=== PATIENT | male | born 1970 | race Caucasian/White ===

== ENCOUNTER 2021-03-12 20:00 | Outpatient (CLI) | payer OTHER, SELFPAY | END 2021-03-12 20:01 | disposition home or self-care (01) | LOC: SLEEP 03-13 08:45 | PROVIDERS: PCP Family Medicine; Visit Provider Psychiatry & Neurology Psychiatry | DX: G47.33 Obstructive sleep apnea (adult) (pediatric) (principal) | CPT/HCPCS: 95811 ==

== ENCOUNTER → 2021-06-26 07:46 | Outpatient (BNVA) | payer OTHER, SELFPAY | PROVIDERS: PCP Family Medicine; Visit Provider Urology | DX: N50.89 Other specified disorders of the male genital organs (principal); N49.2 Inflammatory disorders of scrotum; I86.1 Scrotal varices | CPT/HCPCS: 81003 ==

== ENCOUNTER → 2021-12-14 10:45 | Outpatient (BNVA) | payer OTHER, SELFPAY | PROVIDERS: PCP Family Medicine; Visit Provider Specialist | DX: R25.1 Tremor, unspecified (principal); G31.84 Mild cognitive impairment of uncertain or unknown etiology; N28.89 Other specified disorders of kidney and ureter; I25.118 Atherosclerotic heart disease of native coronary artery with other forms of angina pectoris | CPT/HCPCS: 96116; 99204; 99205 ==

== ENCOUNTER 2022-01-29 07:54 | Outpatient (CLI) | payer OTHER, SELFPAY ==
--- NOTE | 2022-01-29 11:24 | MR_ITS ---
WS: [id number] MRI HEAD WITHOUT CONTRAST TECHNIQUE: Sagittal T1, T2 axial, T2 axial FLAIR, axial and coronal T1 images, axial susceptibility w eighted imaging, axial diffusion weighted images, and coronal T2 images were obtained. CLINICAL INFORMATION: R25.1 - Tremor, unspecified COMPARISON: None. FINDINGS: No evidence of restricted diffusion to suggest acute ischemia. Ventricular system and basal cisterns are patent. Normal sorinao-white differentiation. 2 or 3 tiny punctate foci of T2 hyperintensity in the subcortical and deep white matter nonspecific in a patient this age but can be seen with hypertension , diabetes, small vessel disease. Normal posterior fossa. Normal vascular flow voids at the skull bas e. No extra-axial fluid collections. No evidence of mass or mass effect. Mastoid air cells are well aerated. Retention cyst RIGHT maxillar y sinus. Mild mucosal thickening in the ethmoid air cells. No hemosiderin on the susceptibility weigh frida images. Normal optic chiasm and pituitary infundibulum. Normal cavernous sinuses and Meckel's cave. MR/MR head wo con* [id number] IMPRESSION: 1. No evidence of restricted diffusion to suggest acute ischemia. 2. 2 or 3 tiny foci of T2 hyperintensity in the subcortical and deep white mat ter nonspecific in a patient this age but can be seen with hypertension, diabet es, small vessel disease. No significant parenchymal volume loss. 3. Retention cyst RIGHT maxillary sinus. Mild inflammatory changes in the para nasal sinuses. 4. Mastoid air cells are well aerated. 5. Normal optic chiasm and pituitary infundibulum. 6. Temporal lobes and hippocampal formations are normal in appearance. No sign al abnormalities in the temporal lobes. 7. No hemosiderin on susceptibly weighted images.
== END 2022-01-29 07:55 | disposition home or self-care (01) ==
LOC: RAD 07:55
PROVIDERS: PCP Family Medicine; Visit Provider Specialist
DX: R25.1 Tremor, unspecified (principal); M27.40 Unspecified cyst of jaw
CPT/HCPCS: 70551

== ENCOUNTER 2022-03-22 08:43 | Emergency (ER) | payer OTHER, SELFPAY ==
[2022-03-22] VITALS (11 sets, daily range): BP systolic 116–143; BP diastolic 57–94; PULSE 81–114; RESP 15–19; TEMP 36.6; O2SAT 91–99; BMI 35.6
--- NOTE | 2022-03-22 08:53 | XRR_ITS ---
PROCEDURE INFORMATION: Exam: XR Chest Exam date and time: 03/22/2022 9:22 AM Age: 51 years old Clinical indication: Pain; Angina pectoris; Additional info: Chest pain TECHNIQUE: Imaging protocol: XR of the chest. Views: 1 view. COMPARISON: CT abdomen pelvis w con* [id number] 11/06/2021 10:36 AM FINDINGS: Lungs: No pneumonia or pulmonary edema. Pleural spaces: No pleural effusion or pneumothorax. Heart/Mediastinum: The cardiac silhouette is not enlarged. The mediastinal contours are normal. Bones/joints: No acute osseous abnormality. XR/XR chest 1V portable [id number] IMPRESSION: No acute finding.
[2022-03-22 09:19] LABS: Basophils # 0.1 10^3/uL (0.0-0.1); Basophils % 0.5 %; Eosinophils # 0.1 10^3/uL (0.0-0.8); Eosinophils % 0.4 %; Hematocrit 54.1 % (42.0-52.0); Hemoglobin 18.2 g/dL (11.7-16.6); Lymphocytes # 0.9 10^3/uL (0.8-4.8); Lymphocytes % 5.9 %; Mean Corpuscular HGB Conc 33.6 g/dL (30.0-36.0); Mean Corpuscular Hemoglobin 27.8 pg (28.0-34.0); Mean Corpuscular Volume 82.7 fl (80-94); Mean Platelet Volume 9.8 fL (7.4-10.4); Monocytes # 0.8 10^3/uL (0.2-0.9); Neutrophils # 13.56 10^3/uL (1.8-7.7); Neutrophils % 87.5 %; Nucleated Red Blood Cells % 0 %; Platelet Count 264 10^3/cmm (130-400); Red Blood Count 6.54 10^6/uL (4.1-5.3); Red Cell Distribution Width 13.1 % (12.1-15.1); White Blood Count 15.5 10^3/uL (4.0-10.0)
--- NOTE | 2022-03-22 09:21 | CT_ITS ---
WS: [id number] CT ABDOMEN PELVIS TECHNIQUE: Contrast-enhanced CT of the abdomen and pelvis with coronal and sagittal reformatted image s. CLINICAL INFORMATION: abd pain COMPARISON: Outside CT November 06, 2021 and PET/CT December 12, 2021 DLP: 2176.[address] scans at [facility] [place] use at least one of these dose optimization techniques: automated e xposure control; mA and/or kV adjustment per patient size (includes targeted exams where dose is matc hed to clinical indication); or iterative reconstruction. FINDINGS: Hepatomegaly diffuse fatty infiltration liver. Normal portal vein and splenic vein. Normal GE junctio n. Normal spleen. Adrenal glands are normal. No hydronephrosis in either kidney. Normal renal parench ymal enhancement. RIGHT renal cysts. Several noncalcified nodules in the lower lobes partially visualized. The largest measuring 7 mm in t he lingula and 6 mm RIGHT middle lobe. LEFT lower lobe nodule measuring 7.6 mm. These are similar in appearance to November 06, 2021. Recommend follow-up chest CT for further evaluation. Normal GE junction. Fluid distended stomach. Fatty atrophy of the pancreas. Adrenal glands are normal . Normal spleen. Celiac and SMA are patent. No upper abdominal lymphadenopathy. Portal vein and splen ic vein are patent. Sigmoid diverticulosis. No evidence of acute diverticulitis CT/CT abdomen pelvis w con* [id number] IMPRESSION: 1. Numerous subcentimeter noncalcified pulmonary nodules lung bases similar t o November 06, 2021. This can be followed up with chest CT. 2. Hepatomegaly diffuse fatty infiltration of the liver. 3. No hydronephrosis in either kidney. RIGHT renal cysts. 4. No abdominal or pelvic lymphadenopathy. 5. Sigmoid diverticulosis. No evidence of acute diverticulitis. 6. Tiny fat-containing umbilical hernia. 7. No evidence of small or large bowel obstruction. 8. No other significant findings.
[2022-03-22 09:46] LABS: Alanine Aminotransferase 33 U/L (0-41); Albumin Level 4.8 g/dL (3.5-5.2); Alkaline Phosphatase 78 IU/L (40-130); Blood Urea Nitrogen 13 mg/dL (6-20); Calcium 8.8 mg/dL (8.5-10.5); Carbon Dioxide 22 mmol/L (22-29); Chloride 96 mmol/L (98-107); Glomerular Filtration Rate 89.3 mL/min (90-130); Glucose 352 mg/dL (65-115); Osmolality Calculated 294 mOsm/kg (285-295); Sodium 135 mmol/L (136-145); Total Bilirubin 0.7 mg/dL (0.15-1.2); Total Protein 6.8 g/dL (6.6-8.7)
[2022-03-22 09:49] LABS: Troponin(5th) Baseline 6 ng/L (0-15)
[2022-03-22 09:56] LABS: Anion Gap 22.5 (5-19); Aspartate Amino Transferase 22 U/L (0-40); Potassium 5.5 mmol/L (3.5-5.1)
--- NOTE | 2022-03-22 10:06 | W.ED.CHESTPA ---
HPI - Chest Pain General: Chief Complaint: Chest Pain Stated Complaint: CHEST PAIN Time Seen by Provider: 03/22/22 08:52 Source: patient Mode of arrival: ambulatory Limitations: no limitations History of Present Illness: 51-year-old male presents emergency room with complaint of episode of chest pain that lasted 30 to 60 seconds and resolved spontaneously. It began this morning while he was at rest he did take some nitro. Pain is gone and has not recurred since. He has a known history of coronary artery disease in 2017 had stents placed. He is also diabetic. He is currently taking Plavix as well as isosorbide mononitrate. He denies any recent medication changes. He not had other episodes of chest discomfort prior to today. MD complaint: chest pain Pertinent past history: coronary artery disease Onset (ago): minute(s) Timing of current episode: episodic Prior episodes: No Pain location: substernal Severity: mild Quality: sharp Relieving factors: nitroglycerin Exacerbating factors: nothing Associated symptoms: Reports diaphoresis and dyspnea; Deny abdominal pain, fever(s), leg edema, nausea, palpitations, sense of impending doom, syncope or vomiting Risk Factors: Coronary artery disease risk factors: diabetes, smoking history and hypertension Review of Systems Const: Reports: diaphoresis; Denies: fever(s), chills or body aches ENMT: Denies: throat pain, ear or mastoid pain, nasal discharge or nasal congestion Card: Reports: chest pain; Denies: palpitations, irregular heart rhythm or syncope Resp: Reports: dyspnea GI: Denies: abdominal pain, nausea or vomiting : Denies: flank pain, difficulty urinating, dysuria, urinary frequency or urinary urgency Skin/Breast: Denies: rash or pruritus PFSH ED PFSH: Medical History ASHD (arteriosclerotic heart disease) Atypical chest pain Fatigue Gastritis GERD (gastroesophageal reflux disease) Hyperlipidemia Hypertension Ischemic cardiomyopathy Obesity Obstructive sleep apnea Surgical History H/O heart artery stent History of arthroscopic surgery of shoulder Family History Father , AT 53 Heart attack Other Adopted CAD (coronary artery disease) Glaucoma Social History Smoking and tobacco status: never smoked Alcohol intake: never Marital status: Current occupational status: employed History of recent travel: No Physical Exam Const: COMMON NORMALS: no acute distress GENERAL APPEARANCE: cooperative and comfortable ORIENTATION/CONSCIOUSNESS: Yes awake, Yes oriented to person, Yes oriented to place and Yes oriented to time HENMT: COMMON NORMALS: normocephalic, atraumatic and hearing grossly normal bilaterally HEAD & SCALP: normocephalic and atraumatic Neck/C-Spine: COMMON NORMALS: no JVD Resp: COMMON NORMALS: normal respiratory effort, No retractions, No use of accessory muscles and clear to auscultation bilaterally AUSCULTATION: clear to auscultation bilaterally Cardio: COMMON NORMALS: no JVD, regular rate, regular rhythm and No murmurs present (Cardio) RATE: regular rate RHYTHM: regular rhythm GI: COMMON NORMALS: Soft to palpation and No hepatosplenomegaly present AUSCULTATION: Yes normoactive bowel sounds PALPATION: Yes Soft to palpation, No Tenderness to palpation present (GI), No Guarding due to palpation present (GI) and Yes No hepatosplenomegaly present Extremity: COMMON NORMALS: normal to inspection, capillary refill normal, no clubbing, cyanosis or edema, no calf tenderness and no pedal edema Neuro: SENSORIUM/ORIENTATION: Yes oriented to person, Yes oriented to place and Yes oriented to time Skin: COMMON NORMALS: no rashes or lesions noted GENERAL SKIN EXAM: no rashes or lesions noted Course Vital Signs: Vital signs: Vital Signs Temperature 98 F 03/22/22 16:03 Pulse Rate 96 03/22/22 16:03 Respiratory Rate 18 03/22/22 16:03 Blood Pressure 116/81 03/22/22 16:03 Pulse Oximetry 95 03/22/22 16:03 MDM - Chest Pain Medical Decision Making Patient's chest pain is fleeting in nature does not sound particularly cardiac. Its resolved at this point. He is not having any further symptoms. Weight went to discharge him initially and is found to be moderately tachycardic in the 120s and his sats were hovering in the low 90s. We pause discharge and did a CTA of the chest which was negative. He is now completely asymptomatic. Follow-up with cardiology clinic this week. Return if you have further problems. Medical Records I reviewed the patient's medical records. Lab Data I reviewed the patient's lab results. : 03/22/22 09:05 03/22/22 09:05 Radiology Impressions Chest X-Ray 03/22/22 08:53 IMPRESSION: No acute finding. Abdomen/Pelvis CT 03/22/22 09:21 IMPRESSION: 1. Numerous subcentimeter noncalcified pulmonary nodules lung bases similar to November 06, 2021. This can be followed up with chest CT. 2. Hepatomegaly diffuse fatty infiltration of the liver. 3. No hydronephrosis in either kidney. RIGHT renal cysts. 4. No abdominal or pelvic lymphadenopathy. 5. Sigmoid diverticulosis. No evidence of acute diverticulitis. 6. Tiny fat-containing umbilical hernia. 7. No evidence of small or large bowel obstruction. 8. No other significant findings. Chest CTA 03/22/22 13:05 IMPRESSION: 1. Proximal main pulmonary arteries are normal. Normal segmental and subsegmental pulmonary arteries. No evidence of pulmonary embolus. 2. No acute pulmonary infiltrates. 3. Numerous noncalcified scattered pulmonary nodules in both lungs similar in appearance to the prior PET CT December 12, 2021 largest measuring 9 mm. These are indeterminant and remain suspicious for metastatic disease. Recommend continued surveillance and short interval follow-up. Laboratory Results WBC 15.5 10^3/uL (4.0-10.0) H 03/22/22 09:05 RBC 6.54 10^6/uL (4.1-5.3) H 03/22/22 09:05 Hgb 18.2 g/dL (11.7-16.6) H 03/22/22 09:05 Hct 54.1 % (42.0-52.0) H 03/22/22 09:05 MCV 82.7 fl (80-94) 03/22/22 09:05 MCH 27.8 pg (28.0-34.0) L 03/22/22 09:05 MCHC 33.6 g/dL (30.0-36.0) 03/22/22 09:05 RDW 13.1 % (12.1-15.1) 03/22/22 09:05 Plt Count 264 10^3/cmm (130-400) 03/22/22 09:05 MPV 9.8 fL (7.4-10.4) 03/22/22 09:05 Neut % (Auto) 87.5 % 03/22/22 09:05 Lymph % (Auto) 5.9 % 03/22/22 09:05 Mercer % (Auto) 5.0 % 03/22/22 09:05 Eos % (Auto) 0.4 % 03/22/22 09:05 Baso % (Auto) 0.5 % 03/22/22 09:05 Neut # (Auto) 13.56 10^3/uL (1.8-7.7) H 03/22/22 09:05 Lymph # (Auto) 0.9 10^3/uL (0.8-4.8) 03/22/22 09:05 Mercer # (Auto) 0.8 10^3/uL (0.2-0.9) 03/22/22 09:05 Eos # (Auto) 0.1 10^3/uL (0.0-0.8) 03/22/22 09:05 Baso # (Auto) 0.1 10^3/uL (0.0-0.1) 03/22/22 09:05 Nucleated RBC % (auto) 0 % 03/22/22 09:05 Nucleated RBCs # 0.0 /100WBC 03/22/22 09:05 Sodium 135 mmol/L (136-145) L 03/22/22 09:05 Potassium 5.5 mmol/L (3.5-5.1) H 03/22/22 09:05 Chloride 96 mmol/L (98-107) L 03/22/22 09:05 Carbon Dioxide 22 mmol/L (22-29) 03/22/22 09:05 Anion Gap 22.5 (5-19) H 03/22/22 09:05 BUN 13 mg/dL (6-20) 03/22/22 09:05 Creatinine 0.9 mg/dL (0.7-1.2) 03/22/22 09:05 GFR Calculation 89.3 mL/min (90-130) L 03/22/22 09:05 Glucose 352 mg/dL (65-115) H 03/22/22 09:05 Calculated Osmolality 294 mOsm/kg (285-295) 03/22/22 09:05 Calcium 8.8 mg/dL (8.5-10.5) 03/22/22 09:05 Total Bilirubin 0.7 mg/dL (0.15-1.2) 03/22/22 09:05 AST 22 U/L (0-40) 03/22/22 09:05 ALT 33 U/L (0-41) 03/22/22 09:05 Alkaline Phosphatase 78 IU/L (40-130) 03/22/22 09:05 Troponin T Baseline 6 ng/L (0-15) 03/22/22 09:05 Troponin T 120 Minute 7.04 ng/L (0-15) 03/22/22 11:34 Delta Troponin T 1.04 ABS# (0-10) 03/22/22 11:34 Troponin T Hi Sens 6Hr 6.03 ng/L (0-15) 03/22/22 15:00 Troponin T Hi Sens 6Hr Delta 0.03 ng/L (0-12) 03/22/22 15:00 Total Protein 6.8 g/dL (6.6-8.7) 03/22/22 09:05 Albumin 4.8 g/dL (3.5-5.2) 03/22/22 09:05 Globulin 2.0 g/dL (1.3-4.6) 03/22/22 09:05 Urine Color Arlene (Yellow) 03/22/22 09:35 Urine Appearance Clear (CLEAR) 03/22/22 09:35 Urine pH 5 (5-7) 03/22/22 09:35 Ur Specific Lipscomb 1.030 (1.005-1.030) 03/22/22 09:35 Urine Protein 2+ (Negative) H 03/22/22 09:35 Urine Glucose (UA) 2+ (Normal) H 03/22/22 09:35 Urine Ketones Negative (Negative) 03/22/22 09:35 Urine Blood Neg (Negative) 03/22/22 09:35 Urine Nitrate Positive (Negative) H 03/22/22 09:35 Urine Bilirubin 1+ (Negative) H 03/22/22 09:35 Urine Urobilinogen 4 mg/dL (Negative) H 03/22/22 09:35 Ur Leukocyte Esterase Trace (Negative) H 03/22/22 09:35 Urine RBC None /hpf (0-2) 03/22/22 09:35 Urine WBC 5-10 /hpf (0-5) H 03/22/22 09:35 Ur Squamous Epith Cells None /hpf (0-5) 03/22/22 09:35 Amorphous Sediment Not Reportable 03/22/22 09:35 Urine Bacteria 1+ /hpf (NONE) H 03/22/22 09:35 Hyaline Casts 40-55 /lpf H 03/22/22 09:35 Urine Mucus 2+ /hpf 03/22/22 09:35 Discharge Plan Discharge Patient Disposition: Home Clinical Impression: Atypical chest pain Condition: Stable Prescriptions: No Action pantoprazole 40 mg tablet,delayed release (DR/EC) 40 mg PO DAILY 0RF isosorbide mononitrate 30 mg tablet extended release 24 hr 30 mg PO DAILY 0RF diphenhydramine HCl [Benadryl Allergy] 25 mg tablet 25 mg PO BEDTIME PRN (Reason: Allergy Symptoms) 0RF loratadine [Allergy Relief (loratadine)] 10 mg tablet 10 mg PO DAILY 0RF bupropion HCl 300 mg tablet extended release 24 hr 300 mg PO QAM 0RF niacin 500 mg capsule, extended release 500 mg PO DAILY 0RF pravastatin 40 mg tablet 40 mg PO DAILY 0RF coenzyme Q10 [Co Q-10] 100 mg capsule 100 mg PO DAILY 0RF metoprolol tartrate 25 mg tablet 25 mg PO BID 0RF aspirin [Adult Low Dose Aspirin] 81 mg tablet,delayed release (DR/EC) 81 mg PO DAILY 0RF fenofibrate nanocrystallized 145 mg tablet 145 mg PO DAILY 0RF clopidogrel 75 mg tablet 75 mg PO DAILY 0RF lisinopril 5 mg tablet 5 mg PO DAILY 0RF prazosin 1 mg capsule 5 mg PO BEDTIME 0RF omega-3 fatty acids [Fish Oil Concentrate] 1,000 mg capsule 2,000 mg PO BID 0RF cholecalciferol (vitamin D3) 25 mcg (1,000 unit) capsule 75 mcg PO DAILY 0RF primidone 50 mg tablet 50 mg PO BID Qty: 60 3RF ergocalciferol (vitamin D2) [Vitamin D2] 1,250 mcg (50,000 unit) capsule 1,250 mcg PO Q7D 0RF Rx Instructions: On Mondays Jardiance 25 mg tablet 25 mg PO DAILY 0RF alogliptin 25 mg tablet 25 mg PO DAILY 0RF glipizide 5 mg tablet 5 mg PO BID 0RF venlafaxine 75 mg tablet 75 mg PO DAILY 0RF metformin 500 mg tablet extended release 24hr 500 mg PO BID 0RF nitroglycerin [Nitrostat] 0.4 mg tablet, sublingual 0.4 mg SUBLINGUAL Q5M PRN (Reason: chest pain) Qty: 90 0RF Rx Instructions: do not exceed 3 doses per episode lamotrigine 200 mg Tablet 200 mg PO BEDTIME 0RF Discharge Orders: Discharge ED (Routine); Ordered 03/22/22 Ordered By: Mehdi Schofield Referrals: Lucia Hobbs MD [Primary Care Provider] - Discharge Diet: Usual diet Discharge Activity: Limit activity as instructed Patient Instructions: Opioid Safety Activity Restrictions/Additional Instructions: Avoid strenuous activity. Follow-up with your structural iron erector within the week. Return if you have further problems. Coding Level of Care Code ED Engineering Geologist for Tracy Fwd Exam Comprehensive
[2022-03-22] MEDS: lactated ringers 1,000 ML 999 ML IV (10:20)
[2022-03-22] MEDS: LORazepam 2 mg/mL INJ 1 mL IVP (10:30)
--- NOTE | 2022-03-22 10:53 | ECG_ITS ---
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 Measurements Intervals Lamar Rate: 109 P: 40 CT: 183 QRS: 71 QRSD: 96 T: 3 QT: 314 QTc: 423 Interpretive Statements SINUS TACHYCARDIA WITH OCCASIONAL VENTRICULAR PREMATURE COMPLEXES NONSPECIFIC ST & T-WAVE ABNORMALITY ABNORMAL RHYTHM ECG Compared to ECG 03/22/2022 08:56:48 Ventricular premature complex(es) now present Sinus rhythm no longer present T-wave abnormality still present Electronically Signed On 03-22-2022 16:36:22 CDT by Matt Brady M.D. [id number]
[2022-03-22 10:55] LABS: Protein Urine 2+ (Negative); Urine Appearance Clear (CLEAR); Urine Color Amber (Yellow); pH Urine 5 (5-7)
[2022-03-22 10:56] LABS: Add Urine Microscopic? YES; Bilirubin Urine 1+ (Negative); Blood Urine Neg (Negative); Glucose Urine UA 2+ (Normal); Ketones Urine Negative (Negative); Leukocyte Esterase Urine Trace (Negative); Nitrate Urine Positive (Negative); Urobilinogen Urine 4 mg/dL (Negative)
[2022-03-22 10:57] LABS: Add Urine Culture? No; Bacteria Urine 1+ /hpf; Hyaline Casts Urine 40-55 /lpf; Mucus Urine 2+ /hpf
[2022-03-22] MEDS: iohexol 350 mg/mL 100 mL Btl IV ×2 (10:59→14:00)
[2022-03-22 12:11] LABS: Troponin 5 2HR 7.04 ng/L (0-15)
[2022-03-22 12:28] LABS: Troponin 5 2HR Delta 1.04 ABS# (0-10)
--- NOTE | 2022-03-22 13:05 | CT_ITS ---
WS: [id number] CTA OF THE CHEST WITH PULMONARY EMBOLISM PROTOCOL TECHNIQUE: High-resolution contrast enhanced CTA of the chest with coronal and sagittal reformatted i radhas with pulmonary embolism protocol. MIP images are also reviewed. CLINICAL INFORMATION: tachycardia/hypoxia COMPARISON: PET CT December 12, [address] scans at [facility] use at least one of these dose optimization techniques: automated e xposure control; mA and/or kV adjustment per patient size (includes targeted exams where dose is matc hed to clinical indication); or iterative reconstruction. FINDINGS: Proximal main pulmonary arteries are normal. Normal segmental and subsegmental pulmonary arteries. No evidence of pulmonary embolus. Normal caliber thoracic aorta. No mediastinal or hilar lymphadenopath y. No axillary lymphadenopathy. Hepatomegaly. Normal GE junction. Fluid distended stomach. Adrenal glands are normal. Partially visua lized RIGHT renal cyst. Mild hypertrophic changes thoracic spine. Numerous bilateral noncalcified pulmonary nodules the largest measuring 8 to 9 mm. These are similar in appearance to the prior PET/CT and remain indeterminate. Metastatic disease not excluded. Recommen d continued surveillance. DLP: 595.[address]/CT angio chest PE protcl [id number] IMPRESSION: 1. Proximal main pulmonary arteries are normal. Normal segmental and subsegmen libby pulmonary arteries. No evidence of pulmonary embolus. 2. No acute pulmonary infiltrates. 3. Numerous noncalcified scattered pulmonary nodules in both lungs similar in appearance to the prior PET CT December 12, 2021 largest measuring 9 mm. These a re indeterminant and remain suspicious for metastatic disease. Recommend contin ued surveillance and short interval follow-up.
--- NOTE | 2022-03-22 14:53 | ECG_ITS ---
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 Measurements Intervals Pinon Rate: 96 P: 39 MD: 175 QRS: 69 QRSD: 100 T: 25 QT: 351 QTc: 444 Interpretive Statements SINUS RHYTHM POSSIBLE LEFT ATRIAL ENLARGEMENT [-0.1mV P-WAVE IN V1/V2] NONSPECIFIC T-WAVE ABNORMALITY Compared to ECG 03/01/2017 05:59:45 T-wave abnormality now present Myocardial infarct finding no longer present Electronically Signed On 03-22-2022 16:36:03 CDT by Matt Brady M.D. [id number]
[2022-03-22 15:39] LABS: Troponin 5 6HR 6.03 ng/L (0-15)
[2022-03-22 16:12] LABS: Troponin 5 6HR Delta 0.03 ng/L (0-12)
--- NOTE | 2022-03-23 09:40 | DCPLANNER ---
Addendum entered by Neva Clinton 04/16/22 18:52: This appointment was rescheduled. Addendum entered by Neva Clinton 03/25/22 14:26: Patient has a follow up appointment scheduled for Tuesday, March 29, 2022 at 9:30 with Zeenat Davidson at [facility]. Clinic will call patient with appointment information. Addendum entered by Neva Clinton 03/23/22 10:14: Patient has [facility] insurance, disease case manager rn sent patients information to Brie with [facility] for that authorization process to be started. Original Note: manager financial services had message to schedule a follow up appointment for patient with heart care. manager financial services sent patients information to the front office staff at [facility]. Patients information will be printed and reviewed. Clinic will call patient with appointment information.
== END 2022-03-22 16:04 | disposition home or self-care (01) ==
PROVIDERS: Emergency Provider Family Medicine; PCP Family Medicine
DX: R07.89 Other chest pain (principal); I25.10 Atherosclerotic heart disease of native coronary artery without angina pectoris; I10 Essential (primary) hypertension; E78.5 Hyperlipidemia, unspecified; G47.33 Obstructive sleep apnea (adult) (pediatric); Z95.5 Presence of coronary angioplasty implant and graft; Z79.82 Long term (current) use of aspirin; Z79.02 Long term (current) use of antithrombotics/antiplatelets; Z79.84 Long term (current) use of oral hypoglycemic drugs
CPT/HCPCS: 71045; 71275; 74177; 80053; 81001; 84484; 85025; 93005; 96361; 96374; 99285; J2060; Q9967

== ENCOUNTER → 2022-06-14 09:50 | Outpatient (BNVA) | payer OTHER, SELFPAY | PROVIDERS: PCP Family Medicine; Visit Provider Internal Medicine Cardiovascular Disease | DX: I25.118 Atherosclerotic heart disease of native coronary artery with other forms of angina pectoris (principal); G47.33 Obstructive sleep apnea (adult) (pediatric); I10 Essential (primary) hypertension; E78.2 Mixed hyperlipidemia | CPT/HCPCS: 99214 ==

== ENCOUNTER 2022-08-22 23:13 | Inpatient (IN) | payer OTHER, SELFPAY ==
[2022-08-22 23:30] VITALS: BMI 35.6
[2022-08-23] VITALS (30 sets, daily range): BP systolic 91–150; BP diastolic 43–103; PULSE 69–97; RESP 3–21; TEMP 36.8–37; O2SAT 91–98
--- NOTE | 2022-08-23 00:09 | USCV_ITS ---
Ralf Anne Age: 52 Gender: M : 1970 Exam Date: 08/23/2022 01:30 Ordering Phys: Gabriel Beavers MD Technologist: Mahogany Kruger Exam Location: [facility] [place] Indication: Chest painj DM Stent BP: 138 / 77 HR: 89 Rhythm: Sinus Technical Quality: Adequate MEASUREMENTS (Male / Female) Normal Values 2D ECHO LV Diastolic Diameter PLAX 4.4 cm 4.2 - 5.9 / 3.9 - 5.3 cm LV Systolic Diameter PLAX 3.0 cm LV Chamber Size 4.1 cm IVS Diastolic Thickness 1.3 cm 0.6 - 1.0 / 0.6 - 0.9 cm IVS Systolic Thickness 1.4 cm LVPW Diastolic Thickness 2.1 cm 0.6 - 1.0 / 0.6 - 0.9 cm LVPW Systolic Thickness 2.2 cm RV Chamber Size 3.1 cm LVOT Diameter 2.2 cm LV Ejection Fraction 2D Teich 60.4 % LV Ejection Fraction MOD 2C 55.2 % LV Ejection Fraction 2C AL 56.0 % LA Diameter 4.3 cm LA Width 2.8 cm LA Height 5.5 cm RA Width 3.3 cm RA Height 3.8 cm Aorta at Sinotubular Diameter 3.3 cm M-MODE Aortic Annulus Diameter 4.1 cm LA Ao Ratio MM 1.2 MV E Point Septal Separation 0.8 cm DOPPLER AV Peak Velocity 107.0 cm/s LVOT Peak Velocity 80.0 cm/s AV Area Cont Eq vti 2.8 cm squared AV Area Cont Eq pk 2.8 cm squared MV Area PHT 5.0 cm squared Mitral E to A Ratio 1.0 MV E' Velocity 34.5 cm/s Mitral E to MV E' Ratio 9.5 Mitral E to LV E' Lateral Ratio 13.4 Mitral E to LV E' Septal Ratio 7.3 TR Peak Velocity 148.5 cm/s TR Peak Gradient 8.8 mmHg TR Mean Velocity 113.3 cm/s TR Mean Gradient 5.5 mmHg TR Velocity Time Integral 34.5 cm TV Peak E Velocity 64.0 cm/s Right Atrial Pressure 8.0 mmHg Pulmonary Artery Systolic Pressu 16.8 mmHg RV Acceleration Time 0.1 s RV Ejection Time 0.2 s RV AcT/ET 0.5 FINDINGS Left Ventricle Left ventricle is normal in size. LV systolic function is normal with EF of 55 to 60%. No regional wall motion abnormalities are seen. Diastolic function is abnormal Right Ventricle Normal in size and function Right Atrium Normal in size Left Atrium Normal in size Mitral Valve Structurally normal mitral valve. Aortic Valve Grossly normal. No significant stenosis or regurgitation Tricuspid Valve Trace tricuspid regurgitation. Insufficient TR jet to calculate RVSP. Pulmonic Valve Not well-visualized Pericardium Normal Aorta Normal in size IVC CONCLUSIONS LV systolic function is normal with EF 55 to 60%. Diastolic function is abnormal Trace tricuspid regurgitation Compared to prior echocardiogram from 2017, no significant changes are seen James Corona MD (Electronically Signed) Final Date: 23 August 2022 17:53 S
--- NOTE | 2022-08-23 00:13 | P.HP_ITS ---
Providers/Chief Complaint Admitting Physician: Gabriel Beavers MD Primary Care Provider: Lucia Hobbs MD Chief Complaint: CP; diarrhea History of Present Illness Ralf Anne is a 52 year old male with past medical history of hypertension diabetes coronary artery disease status post stent, obstructive sleep apnea, Came in with chief complaint of ongoing chest tightness as well as jaw pain , accompanied with left arm radiation going on for the last 3 days, has remained the same without progressive worseing, rates jaw pain at around 4, he is also complaining of feeling excessively hot, denies any shortness of breath, palpitation, nausea vomiting. Patient is also complaining of non bloody watery diarrhea going on for the last 3 days, multiple episodes during the day, with abdominal cramps, denies any sick contacts, eating anything abnormal no similar prior complaint. He has been initially seen at [facility] ER and was accepted as direct admit. Pertinent labs: WBC: 10 H&H: 17/49 platelet: 283 serum sodium: 134 , potassium; 4.2 BUN: 14 and serum creatinine : 1.12, AST : 26 , ALT: 24 , ALP: 70 Recent reported C. difficile is negative Troponin trend: 105-102-128 EKG:NSR , nonspecific ST-T wave abnormality. Review of Systems General: Reports: 10 or more systems reviewed and unremarkable except in HPI and below Const: Denies: chills, body aches, change in appetite or diaphoresis Card: Denies: palpitations, edema, swelling of feet/ankles, dyspnea on exertion, orthopnea or leg pain with exertion Resp: Denies: dyspnea, productive cough, wheezing or pain on inspiration GI: Reports: diarrhea; Denies: abdominal pain, nausea, vomiting or constipation : Denies: flank pain or difficulty urinating Musc: Denies: back pain, extremity pain or extremity swelling Neuro: Denies: headache(s), difficulty walking or confusion Medications/Allergies Home Medications Medication Instructions Recorded Confirmed Last Taken Type aspirin 81 mg tablet,delayed 81 mg PO BEDTIME 04/07/20 08/23/22 03/21/22 History release (Adult Low Dose Aspirin) bupropion HCl 300 mg 24 hr tablet, 300 mg PO QAM 04/07/20 08/23/22 03/22/22 History extended release clopidogrel 75 mg tablet 75 mg PO DAILY 04/07/20 08/23/2222 History coenzyme Q10 100 mg capsule (Co 100 mg PO DAILY 04/07/20 08/23/22 03/22/22 History Q-10) diphenhydramine HCl 25 mg tablet 25 mg PO BEDTIME PRN Allergy 04/07/20 08/23/22 Unknown History (Benadryl Allergy) Symptoms fenofibrate nanocrystallized 145 145 mg PO DAILY 04/07/20 08/23/22 03/22/22 History mg tablet isosorbide mononitrate 30 mg 30 mg PO DAILY 04/07/20 08/23/22 03/22/22 History tablet,extended release 24 hr pantoprazole 40 mg tablet,delayed 40 mg PO DAILY 04/07/20 08/23/22 03/22/22 History release pravastatin 40 mg tablet 40 mg PO DAILY 04/07/20 08/23/22 03/22/22 History nitroglycerin 0.4 mg sublingual 0.4 mg sublingual Q5M PRN chest 04/15/20 08/23/22 Unknown Rx tablet (Nitrostat) pain #90 tabs alogliptin 25 mg tablet 25 mg PO DAILY 12/14/21 08/23/22 03/22/22 History cholecalciferol (vitamin D3) 25 75 mcg PO QAM 12/14/21 08/23/22 03/22/22 History mcg (1,000 unit) capsule empagliflozin 25 mg tablet 25 mg PO DAILY 12/14/21 08/23/22 03/22/22 History (Jardiance) primidone 50 mg tablet 50 mg PO BID #60 tabs 12/14/21 08/23/22 03/22/22 Rx metformin 500 mg tablet,extended 1,000 mg PO BID 02/19/22 08/23/22 03/22/22 History release 24hr lamotrigine 200 mg tablet 200 mg PO BEDTIME 03/22/22 08/23/22 03/21/22 History ascorbic acid (vitamin C) 500 mg 500 mg PO DAILY PRN unknown 08/23/22 08/23/22 Unknown History tablet (Vitamin C) ergocalciferol (vitamin D2) 1,250 50,000 unit PO Q7D 08/23/22 08/23/22 Unknown History mcg (50,000 unit) capsule (Vitamin D2) glipizide 10 mg tablet 10 - 20 mg PO BID 08/23/22 08/23/22 Unknown History lisinopril 10 mg tablet 10 mg PO QAM 08/23/22 08/23/22 Unknown History multivitamin 1 tab PO DAILY PRN unknown 08/23/22 08/23/22 Unknown History omega-3 fatty acids 1,000 mg 2,000 mg PO BID 08/23/22 08/23/22 Unknown History capsule prazosin 5 mg capsule 3 mg PO BEDTIME 08/23/22 08/23/22 Unknown History venlafaxine 75 mg capsule,extended 75 mg PO QAM 08/23/22 08/23/22 Unknown History release 24 hr (Effexor XR) metoprolol tartrate 50 mg tablet 50 mg PO BID #60 tabs 08/24/22 08/23/22 Unknown Rx niacin 500 mg tablet,extended 1,000 mg PO BEDTIME #30 tabs 08/24/22 08/23/22 Unknown Rx release (Slo-Niacin) Allergies Allergy/AdvReac Type Severity Reaction Status Date / Time No Known Allergies Allergy Verified 08/23/22 09:53 PFSH Acute PFSH: Medical History ASHD (arteriosclerotic heart disease) Atypical chest pain Fatigue Gastritis GERD (gastroesophageal reflux disease) Hyperlipidemia Hypertension Ischemic cardiomyopathy Obesity Obstructive sleep apnea Surgical History H/O heart artery stent History of arthroscopic surgery of shoulder Family History Father , AT 53 Heart attack Other Adopted CAD (coronary artery disease) Glaucoma Social History Smoking and tobacco status: never smoked Alcohol intake: never Marital status: Current occupational status: employed History of recent travel: No Vitals/I&O/Wt Last Vital Signs Temp 98.2 F 08/23/22 00:02 Pulse 97 08/23/22 00:02 Resp 17 08/23/22 00:02 BP 150/74 08/23/22 00:02 Pulse Ox 96 08/23/22 00:02 O2 Del Method 08/23/22 00:02 Weight last 48 hrs Weight 122.47 kg Physical Exam Const: COMMON NORMALS: patient oriented x3 HENMT: COMMON NORMALS: normocephalic and atraumatic HEAD & SCALP: normocephalic and atraumatic Resp: COMMON NORMALS: clear to auscultation bilaterally EFFORT & INSP ECTION: Yes symmetric chest movement AUSCULTATION: clear to auscultation bilaterally Cardio: COMMON NORMALS: regular rate, regular rhythm, S1 normal heart sound present, S2 normal heart sound present, No gallops present (Cardio), No murmurs present (Cardio), No rub (Cardio) and Peripheral pulses 2+ throughout RATE: regular rate RHYTHM: regular rhythm HEART SOUNDS: S1 normal heart sound present and S2 normal heart sound present PERIPHERAL PULSES: Peripheral pulses 2+ throughout GI: COMMON NORMALS: Normal to inspection, nondistended, normoactive bowel sounds present, Soft to palpation, non-tender, No hepatosplenomegaly present and no masses AUSCULTATION: Yes normoactive bowel sounds PALPATION: Yes Soft to palpation and Yes No hepatosplenomegaly present RECTAL EXAM: Yes deferred Extremity: COMMON NORMALS: no clubbing, cyanosis or edema and no pedal edema Neuro: COMMON NORMALS: patient oriented x3 Data : 08/24/22 03:13 08/24/22 03:13 A&P Assessment and plan (1) NSTEMI (non-ST elevated myocardial infarction): (2) Chest pain: (3) Hypertension: Qualifiers: Hypertension type: essential hypertension Qualified Code(s): I10 - Essential (primary) hypertension (4) ASHD (arteriosclerotic heart disease): (5) Hyperlipidemia: Qualifiers: Hyperlipidemia type: mixed hyperlipidemia Qualified Code(s): E78.2 - Mixed hyperlipidemia (6) Diabetes: (7) Obstructive sleep apnea: Plan 52 year old male with past medical history of hypertension diabetes coronary artery disease status post stent, obstructive sleep apnea, Came in with chief complaint of ongoing chest tightness as well as jaw pain , accompanied with left arm radiation going on for the last 3 days, has remained the same without progressive worseing, rates jaw pain at around 4, he is also complaining of feeling excessively hot, denies any shortness of breath, palpit ation, nausea vomiting. Patient is also complaining of non bloody watery diarrhea going on for the last 3 days, multiple episodes during the day, with abdominal cramps, denies any sick contacts, eating anything abnormal no similar prior complaint. Assessment: NSTEMI History of coronary artery disease s/p stent Hypertension Diabetes Diarrhea Obstructive sleep apnea Plan: Troponin trend: 105-102-128 EKG:NSR , nonspecific ST-T wave abnormality. Serial EKG monitoring Telemetry monitoring 2D echo Continue aspirin statin Plavix beta-shakila, Imdur, Nitropaste, sublingual nitro as needed. Received 1 dose of therapeutic Ac with lovenox Follow stool studies Stool Osmotic Gap IV hydration LDSSI, monitor fingerstick glucose Currently NPO Cardiology was consulted by ER physician of [facility]. Dr. Harding CODE STATUS: Full code DVT PPX : On Lovenox Attestations Medical Necessity Statement*: Patient is in hospital for management of NSTEMI. Anticipated length of stay greater than 2 midnights Time Spent in Patient Care: Greater than 35 minutes (>than 50% of time spent in counselling and/or direct pt care on unit) . Coding Level of Care Code Acute Shirt Marker for Chg Fwd Exam Detailed Diagnoses NSTEMI (non-ST elevated myocardial infarction) I21.4 Chest pain R07.9 Hypertension I10 Hypertension type: essential hypertension ASHD (arteriosclerotic heart disease) I25.10 Hyperlipidemia E78.2 Hyperlipidemia type: mixed hyperlipidemia Diabetes E11.9 Obstructive sleep apnea G47.33
[2022-08-23] MEDS: lactated ringers 1,000 ML 100 ML IV (00:43)
[2022-08-23] MEDS: enoxaparin 40 mg/0.4 mL Syringe SUBCUT (00:46)
[2022-08-23 00:47] LABS: Basophils % 0.4 %; Eosinophils # 0.2 10^3/uL (0.0-0.8); Eosinophils % 2.1 %; Hematocrit 50.3 % (42.0-52.0); Hemoglobin 16.6 g/dL (11.7-16.6); Lymphocytes # 2.6 10^3/uL (0.8-4.8); Lymphocytes % 27.7 %; Mean Corpuscular Hemoglobin 28.5 pg (28.0-34.0); Mean Corpuscular Volume 86.3 fl (80-94); Mean Platelet Volume 9.8 fL (7.4-10.4); Monocytes # 1.1 10^3/uL (0.2-0.9); Monocytes % 11.5 %; Neutrophils # 5.49 10^3/uL (1.8-7.7); Neutrophils % 57.9 %; Nucleated Red Blood Cells % 0 %; Platelet Count 257 10^3/cmm (130-400); Red Blood Count 5.83 10^6/uL (4.1-5.3); Red Cell Distribution Width 12.9 % (12.1-15.1); White Blood Count 9.5 10^3/uL (4.0-10.0)
[2022-08-23] MEDS: acetaminophen 325 mg Tablet 650 MG PO (00:51)
[2022-08-23 01:05] LABS: Alanine Aminotransferase 22 U/L (0-41); Albumin Level 4.1 g/dL (3.5-5.2); Alkaline Phosphatase 65 U/L (40-130); Anion Gap 15.6 (5-19); Aspartate Amino Transferase 22 U/L (0-40); Blood Urea Nitrogen 14 mg/dL (6-20); Calcium 9.1 mg/dL (8.5-10.5); Carbon Dioxide 24 mmol/L (22-29); Chloride 99 mmol/L (98-107); Globulin 2.7 g/dL (1.3-4.6); Glomerular Filtration Rate 78.8 mL/min (90-130); Glucose 172 mg/dL (65-115); Magnesium 1.6 mg/dL (1.7-2.3); Osmolality Calculated 285 mOsm/kg (285-295); Potassium 3.6 mmol/L (3.5-5.1); Sodium 135 mmol/L (136-145); Total Bilirubin 0.7 mg/dL (0.15-1.2); Total Protein 6.8 g/dL (6.6-8.7)
[2022-08-23 01:14] LABS: Troponin(5th) Baseline 128 ng/L (0-15)
[2022-08-23] MEDS: enoxaparin 80 mg/0.8 mL Syringe SUBCUT (02:07)
[2022-08-23 02:44] LABS: Troponin 5 2HR Delta -2.4 ABS# (0-10)
[2022-08-23 02:46] LABS: Troponin 5 2HR 125.6 ng/L (0-15)
--- NOTE | 2022-08-23 03:12 | ECG_ITS ---
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 Measurements Intervals [place] Rate: 84 P: 33 NM: 156 QRS: 25 QRSD: 98 T: 64 QT: 389 QTc: 461 Interpretive Statements SINUS RHYTHM POSSIBLE INFERIOR MYOCARDIAL INFARCTION , PROBABLY OLD [30 ms Q WAVE IN II/aVF] Compared to ECG 03/22/2022 11:28:17 Myocardial infarct finding now present Sinus tachycardia no longer present Ventricular premature complex(es) no longer present T-wave abnormality no longer present Electronically Signed On 08-23-2022 17:38:36 CDT by James Corona M.D. [id number]
--- NOTE | 2022-08-23 03:12 | ECG_ITS ---
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 Measurements Intervals [place] Rate: 84 P: 33 AK: 156 QRS: 25 QRSD: 98 T: 64 QT: 389 QTc: 461 Interpretive Statements SINUS RHYTHM POSSIBLE INFERIOR MYOCARDIAL INFARCTION , PROBABLY OLD [30 ms Q WAVE IN II/aVF] Compared to ECG 03/22/2022 11:28:17 Myocardial infarct finding now present Sinus tachycardia no longer present Ventricular premature complex(es) no longer present T-wave abnormality no longer present Electronically Signed On 08-23-2022 17:44:02 CDT by James Corona M.D. [id number]
--- NOTE | 2022-08-23 06:03 | ECG_ITS ---
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 Measurements Intervals [place] Rate: 80 P: 29 LA: 152 QRS: 25 QRSD: 101 T: 57 QT: 378 QTc: 437 Interpretive Statements SINUS RHYTHM Compared to ECG 08/23/2022 03:12:45 Myocardial infarct finding no longer present Electronically Signed On 08-23-2022 17:43:47 CDT by James Corona M.D. [id number]
[2022-08-23 06:25] LABS: Glucose Point of Care 235 mg/dL (70-110)
[2022-08-23] MEDS: nitroglycerin 1 gm/inch oint Pkt 1 INCH TOPICAL ×3 (06:39→18:08)
[2022-08-23 07:15] LABS: Troponin 5 6HR 135.8 ng/L (0-15); Troponin 5 6HR Delta 7.8 ng/L (0-12)
[2022-08-23] MEDS: insulin lispro 100 unit/1 mL SUBCUT ×4 (08:55→20:38)
[2022-08-23] MEDS: isosorbide mononitrate ER 30 mg Tablet PO (08:56)
[2022-08-23] MEDS: lisinopril 5 mg Tablet PO (08:56)
[2022-08-23] MEDS: aspirin 81 mg EC Tablet PO (08:56)
[2022-08-23] MEDS: venlafaxine 75 mg Tablet PO (08:57)
[2022-08-23] MEDS: pantoprazole DR 40 mg Tablet PO (08:57)
[2022-08-23] MEDS: clopidogrel 75 mg Tablet PO (08:57)
[2022-08-23] MEDS: primidone 50 mg Tablet PO ×2 (08:57→17:36)
[2022-08-23] MEDS: metoprolol tartrate 25 mg Tablet PO ×2 (08:57→17:36)
[2022-08-23] MEDS: fenofibrate 145 mg Tablet PO (08:57)
[2022-08-23] MEDS: atorvastatin 40 mg Tablet 20 MG PO (08:58)
[2022-08-23 09:08] LABS: Estmated Average Glucose 200; Hemoglobin A1C 8.6 % (4.0-6.0)
[2022-08-23 09:30] LABS: Folate Level 9.1 ng/mL (4.5-32.2)
[2022-08-23 09:40] LABS: Chol HDL Ratio 4.94 mg/dL (1.0-5.00); Cholesterol 153 mg/dL (0-200); HDL Cholesterol 31 mg/dL (60-100); Triglycerides 662 mg/dL (0-150); VLDL Cholestrol Calculation 132 mg/dL (0-30)
[2022-08-23 09:43] LABS: Vitamin B12 330 pg/mL (232-1245)
[2022-08-23 09:44] LABS: Thyroid Stimulating Hormone 1.42 uIU/mL (0.27-4.20)
--- NOTE | 2022-08-23 09:46 | XACV_ITS ---
Exam Room: [facility] Ht: 185 cm Wt: 122 kg BSA: 2.55 m2 Gender: Male : 1970 Any Known Allergies: Other Exam Priority: Routine Procedure(s): Procedure Description: Diagnostic procedure Procedure Description: PCI procedure Procedure Description: Left Heart Catheterization Procedure Description: Drug Eluting Coronary Stent Procedure Description: PTCA Procedure Description: Miscellaneous Procedure Description: ACT Procedure Description: Coronary Angiography Diagnostic Cath Status: Urgent Diagnostic Findings * Left Anterior Descending has mild luminal irregularities. * Distal Circumflex: totally occluded prior stent, ROME: 0 flow. LCx gives rise to a large sized OM branch that is patent. * INDICATION: 52 year old male with past medical history of hypertension, CAD with prior stent, diabetes, hyperlipidemia who presented to the [place] emergency room last week with chest pain symptoms. ACS was ruled out and he was discharged. He came back yesterday again with substernal chest discomfort radiating to the left arm and jaw. He says it has been staying quite persistently over the last few days. His troponin last week was normal and was over 100 this admission. EKG showed normal sinus rhythm with nonspecific ST-T wave changes. Q waves are seen in inferior leads. * Proximal Right Coronary Artery: chronic total occlusion, ROME: 0 flow. * 1st Diagonal: severe 70% stenosis, ROME: 3 flow. * Left Main has no disease. * Coronary angiography shows right dominance. PCI Status: Urgent PCI Indication: NSTE - ACS Interventional Findings * INTERVENTIONAL PRPCEDURE: We engaged left main artery with XB 3.5 guide catheter. IV heparin was administered to maintain ACT above 250 s. We used 0.014 run-through guidewire to cross diagonal artery stenosis. It was predilated with 2.5 x 12 mm semicompliant balloon. This was followed by placement of 2.5 x 18 mm resolute Moo drug-eluting stent. At this time final angiogram was performed that showed excellent stent expansion, no residual stenosis and ROME-3 flow. Guidewire and guide catheter were removed. Patient left the Blood Bank Calendar Control Clerk in a stable condition.. * 1st Diagonal: 70% stenosis treated with a AB TREK 2.50X12 RX BALLOON, and MDT R MOO 2.5X18 ROX. 0% residual stenosis, ROME: 3 flow. Conclusions 1. Severe diagonal artery stenosis s/p successful revascularization with ROX x1.. 2. Chronic total occlusion of distal left circumflex artery stent and proximal RCA. 3. 1st Diagonal was treated with a Balloon, and Drug Eluting Stent. Recommendations * Dual antiplatelet therapy with aspirin and Plavix for at least 1 year. * High intensity statin therapy. * Outpatient cardiology follow-up in 4 weeks. Interventional RX Recommendation: PCI w/o planned CABG Diagnostic RX Recommendation: PCI w/o planned CABG Anticoagulation: Heparin Pressures Phase:Rest AO : 105 / 83 ( 93 ) @ 11:31:00 AM 106 / 81 ( 93 ) @ 11:38:00 AM 104 / 79 ( 89 ) @ 11:43:00 AM 109 / 46 ( 73 ) @ 11:43:00 AM 91 / 67 ( 78 ) @ 11:58:00 AM LV : 116 / -3 / 15 @ 11:43:00 AM 115 / -3 / 15 @ 11:43:00 AM Valves Phase:DefaultPhase AV : 11.0 @ 11:11:37 AM AV Mean Gradient: 8.0 @ 11:11:37 AM Clinical Evaluation EBL: 5mL-10mL Procedural Details Procedure Consent Obtained. Admit Source: In Patient. Pre-Procedure Time Out. Identified patient by full name and date of as verbalized by the patient/guarantor. Does the consent match the physician's order: Yes. Accurate & Complete Informed Consent: Yes. Inpatient/Outpatient History & Physical on Chart: Yes. If H&P is completed, is and addenduem needed: N/A; If yes, is the addendum complete: N/A. Visualize and Verify Site with Patient/Guarantor: N/A. Relevant Radiology Images available: N/A. Pre-op teaching completed and patient verbalized understanding. The risks, benefits, and alternatives of sedation and/or procedure were discussed by physician. The patient agrees to continue. Procedure started. [facility] Clinical Fraility Score: 2: Well. Blood Bank Calendar Control Clerk Indications: Worsening Angina. Chest Pain Symptom Assessment: Typical Angina Symptoms. Correct patient, site and procedure confirmed by cath team. Current diagnosis: NSTEMI. PERRLA. Strong, equal hand office rn bilaterally. Lungs clear x 5 lobes. IV Site on Arrival: 20 gauge in the right anticubital. IV Fluids: Lactated Ringers at KVO. 850 mL infused prior to quality assurance qa lab technician. Pre Procedural Pulses: bilateral dorsalis pedis was 2+. Pre Procedural Pulses: bilateral radial was 3+. Oxygen started at 2liters/min via nasal canula. right groin was prepped with chloroprep then draped in the usual sterile fashion. right radial was prepped with chloroprep then draped in the usual sterile fashion. Physician notified. Baseline sample Acquired. HR: 80 BPM. Physician arrived. Physician scrubbed in. Immediate Pre-Procedure Time Out. Correct Patient: Yes; Correct Procedure: Yes; Correct Site: Yes; Correct Patient Position: Yes; Correct Supplies: Yes; Dried Flammable Prep: Yes; Blood Products Available: N/A;. Lidocaine 1% infiltrated to the right radial. Arterial access obtained. A 5 filipino TIG catheter in over wire. Catheter removed over the exchange wire. A 5 filipino Norberto catheter in over wire. Multiple views taken of left coronary artery. Catheter removed over the exchange wire. A 6 filipino JR4 catheter in over wire. Multiple views taken of right coronary artery. Catheter advanced across the valve. EDP Sample taken: LV 116/-4,15; HR: 73 BPM; SpO2: 96%. Pullback taken: LV 115/-4,15; AO 104/79(89); Mean: 8mmHg, Peak to Peak: 11mmHg, SEP: 19sec/min; HR: 75 BPM; SpO2: 96%. Catheter out. 6 filipino XB 3.5 guide catheter was inserted over the wire. Runthrough guidewire was advanced through the guide catheter to lesion in the diaganol. Balloon inserted to lesion in the diaganol. Inflation number : 1 A AB TREK 2.50X12 RX BALLOON was prepped and advanced across the 1st Diag , then inflated to 10 MI for 0:18 seconds. Inflation number: 2 The AB TREK 2.50X12 RX BALLOON was reinflated across the 1st Diag, to 10 MI for 0:15 seconds. Balloon out. Results checked. Stent inserted to lesion in the diaganol. Inflation Number : 3 A EVA R MOO 2.5X18 ROX -Lot Number# [id number] Exp 12/25/2024 was prepped and advanced across the 1st Diag. The stent was deployed at 0 MI for 0:20 seconds. Stent balloon out over wire. Results checked. ACT drawn. Results 297 seconds. Therapeutic limits - pre-heparin administration 90-150 seconds and monitoring heparin during a vascular procedure >250 seconds. Guide catheter and wire out. A TR Band was successful obtaining hemostatsis at the Right Radial artery insertion site. Post Procedure: Pulses reassessed and unchanged. PERRLA. Strong, equal hand office rn bilaterally. No VTE prophylaxis required. Medication's Wasted: Lidocaine 1% = 2 mL. Medication's Wasted: Nitro = 49.6 mg. Medication's Wasted: Other = Fentanyl 25 mcg. Total IV fluids: 71 mL. PCI Indication: NSTE. Post-op diagnosis: Obstructive CAD. Complications: none. Estimated blood loss: 5mL-10mL. Responsiveness - Normal response to verbal stimuli; alert and oriented, PERRLA. Airway - Unaffected, no intervention required; spontaneous ventilation. Circulation: W/N/L, pulses unchanged. Nausea/Vomiting: No. Procedure completed. Patient transferred by wheelchair to ICU. Vital chart was stopped. Access Site Site: Right Radial artery Sheath Size: 6 Fr Hemostasis Method: TR Band Hemostasis Success: Successful Procedure Medications Start: 10:23 AM Stop: 10:23 AM Medication: Versed Amount: 1 mg Route: I.V. Start: 10:23 AM Stop: 10:23 AM Medication: Fentanyl Amount: 50 mcg Route: I.V. Start: 10:24 AM Stop: 10:24 AM Medication: Versed Amount: 1 mg Route: I.V. Start: 10:28 AM Stop: 10:28 AM Medication: Heparin Amount: 5000 units Route: I.V. Start: 10:26 AM Stop: 10:26 AM Medication: Nitrogylcerin Amount: 200 mcg Route: I.A. Start: 10:49 AM Stop: 10:49 AM Medication: Versed Amount: 1 mg Route: I.V. Start: 10:49 AM Stop: 10:49 AM Medication: Fentanyl Amount: 25 mcg Route: I.V. Start: 10:50 AM Stop: 10:50 AM Medication: Heparin Amount: 6000 units Route: I.V. Start: 10:59 AM Stop: 10:59 AM Medication: Heparin Amount: 1000 units Route: I.V. Start: 11:01 AM Stop: 11:01 AM Medication: Nitrogylcerin Amount: 200 mcg Route: I.C. I, the attending physician, have reviewed and verified all procedure medications. Yes, all medications given per verbal order History/Risk Factors Hypertension: Yes Dyslipidemia: Yes Peripheral Arterial Disease (PAD): No Myocardial Infarction ([place]): Yes Obesity: Yes Renal Disease: No Tobacco Use: Never Prior Interventions PCI: Yes CABG: No Valve Surgery: No Date of PCI: 02/28/2017 Report Signatures Finalized by James Corona MD on 08/28/2022 08:53 PM
--- NOTE | 2022-08-23 09:47 | P.CONIM_ITS ---
Providers/Reason For Consult Consulting Physician/Specialty*: James Corona MD/ Cardiology Reason for Consult*: NSTEMI Requesting Physician: Dr Beavers Attending Physician: Diogo Murphy MD Primary Care Provider: Lucia Hobbs MD History of Present Illness History of Present Illness Ralf Anne is a 52 year old male with past medical history of hypertension, CAD with prior stent, diabetes, hyperlipidemia who presented to the [facility] emergency room last week with chest pain symptoms. ACS was ruled out and he was discharged. He came back yesterday again with substernal chest discomfort radiating to the left arm and jaw. He says it has been staying quite persistently over the last few days. His troponin was over 100. EKG showed normal sinus rhythm with nonspecific ST-T wave changes. Q waves are seen in inferior leads. Patient also had diarrhea for the last 3 days. Has improved now. Review of Systems General: Reports: 10 or more systems reviewed and unremarkable except in HPI and below Const: Denies: chills, body aches, change in appetite or diaphoresis Card: Reports: chest pain; Denies: palpitations, edema, swelling of feet/ankles, dyspnea on exertion, orthopnea or leg pain with exertion Resp: Denies: dyspnea, productive cough, wheezing or pain on inspiration GI: Reports: diarrhea; Denies: abdominal pain, nausea, vomiting or constipation : Denies: flank pain or difficulty urinating Musc: Denies: back pain, extremity pain or extremity swelling Neuro: Denies: headache(s), difficulty walking or confusion Medications/Allergies Home Medications Medication Instructions Recorded Confirmed Last Taken Type aspirin 81 mg tablet,delayed 81 mg PO DAILY 04/07/20 03/22/22 03/21/22 History release (Adult Low Dose Aspirin) bupropion HCl 300 mg 24 hr tablet, 300 mg PO QAM 04/07/20 03/22/22 03/22/22 History extended release clopidogrel 75 mg tablet 75 mg PO DAILY 04/07/20 03/22/22 03/22/22 History coenzyme Q10 100 mg capsule (Co 100 mg PO DAILY 04/07/20 03/22/22 03/22/22 History Q-10) diphenhydramine HCl 25 mg tablet 25 mg PO BEDTIME PRN Allergy 04/07/20 03/22/22 Unknown History (Benadryl Allergy) Symptoms fenofibrate nanocrystallized 145 145 mg PO DAILY 04/07/20 03/22/22 03/22/22 History mg tablet isosorbide mononitrate 30 mg 30 mg PO DAILY 04/07/20 03/22/22 03/22/22 History tablet,extended release 24 hr pantoprazole 40 mg tablet,delayed 40 mg PO DAILY 04/07/20 03/22/22 03/22/22 His tory release pravastatin 40 mg tablet 40 mg PO DAILY 04/07/20 03/22/22 03/22/22 History nitroglycerin 0.4 mg sublingual 0.4 mg sublingual Q5M PRN chest 04/15/20 03/22/22 Unknown Rx tablet (Nitrostat) pain #90 tabs alogliptin 25 mg tablet 25 mg PO DAILY 12/14/21 03/22/22 03/22/22 History cholecalciferol (vitamin D3) 25 75 mcg PO DAILY 12/14/21 03/22/22 03/22/22 History mcg (1,000 unit) capsule empagliflozin 25 mg tablet 25 mg PO DAILY 12/14/21 03/22/22 03/22/22 History (Jardiance) primidone 50 mg tablet 50 mg PO BID #60 tabs 12/14/21 03/22/22 03/22/22 Rx metformin 500 mg tablet,extended 500 mg PO BID 02/19/22 03/22/22 03/22/22 History release 24hr lamotrigine 200 mg tablet 200 mg PO BEDTIME 03/22/22 03/22/22 03/21/22 History ascorbic acid (vitamin C) 500 mg 500 mg PO DAILY PRN unknown 08/23/22 08/23/22 Unknown History tablet (Vitamin C) ergocalciferol (vitamin D2) 1,250 50,000 unit PO Q7D 08/23/22 08/23/22 Unknown History mcg (50,000 unit) capsule (Vitamin D2) glipizide 10 mg tablet 10 - 20 mg PO BID 08/23/22 08/23/22 Unknown History lisinopril 10 mg tablet 10 mg PO QAM 08/23/22 08/23/22 Unknown History metoprolol tartrate 50 mg tablet 50 mg PO DAILY 08/23/22 08/23/22 Unknown History multivitamin 1 tab PO DAILY PRN unknown 08/23/22 08/23/22 Unknown History niacin 500 mg tablet,extended 500 mg PO BEDTIME 08/23/22 08/23/22 Unknown History release (Slo-Niacin) omega-3 fatty acids 1,000 mg 2,000 mg PO BID 08/23/22 08/23/22 Unknown History capsule prazosin 5 mg capsule 5 mg PO BEDTIME 08/23/22 08/23/22 Unknown History venlafaxine 75 mg capsule,extended 75 mg PO QAM 08/23/22 08/23/22 Unknown History release 24 hr (Effexor XR) Allergies Allergy/AdvReac Type Severity Reaction Status Date / Time No Known Allergies Allergy Verified 08/23/22 09:53 Current Medications Generic Name Dose Route Start Last Admin Trade Name Freq PRN Reason Stop Dose Admin Acetaminophen 650 mg 08/23/22 00:04 08/23/22 00:51 Acetaminophen 325 Mg Tablet PO 650 mg Q6H PRN Administration Mild/Mod Pain Or Temp >/= 101 Aspirin 81 mg 08/23/22 09:00 08/23/22 08:56 Aspirin 81 Mg Ec Tablet PO 81 mg DAILY JOANA Administration Atorvastatin Calcium 20 mg 08/23/22 09:00 08/23/22 08:58 Atorvastatin 40 Mg Tablet PO 20 mg DAILY JOANA Administration Clopidogrel Bisulfate 75 mg 08/23/22 09:00 08/23/22 08:57 Clopidogrel 75 Mg Tablet PO 75 mg DAILY JOANA Administration Fenofibrate 145 mg 08/23/22 09:00 08/23/22 08:57 Fenofibrate 145 Mg Tablet PO 145 mg DAILY JOANA Administration Lactated Ringer's 1,000 mls @ 75 mls/hr 08/23/22 00:15 08/23/22 08:57 Lactated Ringers IV 75 mls/hr .[id number] JOANA Infusion Insulin Human Lispro 0 unit 08/23/22 08:00 08/23/22 08:55 Insulin Lispro 100 Unit/1 Ml SUBCUT 6 unit WM&BEDTIME JOANA Administration Protocol Isosorbide Mononitrate 30 mg 08/23/22 09:00 08/23/22 08:56 Isosorbide Mononitrate Er 30 Mg Tablet PO 30 mg DAILY JOANA Administration Lisinopril 5 mg 08/23/22 09:00 08/23/22 08:56 Lisinopril 5 Mg Tablet PO 5 mg DAILY JOANA Administration Metoprolol Tartrate 25 mg 08/23/22 09:00 08/23/22 08:57 Metoprolol Tartrate 25 Mg Tablet PO 25 mg BID JOANA Administration Nitroglycerin 1 inch 08/23/22 07:00 08/23/22 06:39 Nitroglycerin 1 Gm/Inch Oint Pkt TOPICAL 1 inch Q6H JOANA Administration Pantoprazole Sodium 40 mg 08/23/22 09:00 08/23/22 08:[address] 40 Mg Tablet PO 40 mg DAILY JOANA Administration Primidone 50 mg 08/23/22 09:00 08/23/22 08:57 Primidone 50 Mg Tablet PO 50 mg BID JOANA Administration Venlafaxine HCl 75 mg 08/23/22 09:00 08/23/22 08:57 Venlafaxine 75 Mg Tablet PO 75 mg DAILY JOANA Administration PFSH Acute 2 PFSH: Medical History ASHD (arteriosclerotic heart disease) Atypical chest pain Fatigue Gastritis GERD (gastroesophageal reflux disease) Hyperlipidemia Hypertension Ischemic cardiomyopathy Obesity Obstructive sleep apnea Surgical History H/O heart artery stent History of arthroscopic surgery of shoulder Family History Father , AT 53 Heart attack Other Adopted CAD (coronary artery disease) Glaucoma Social History Smoking and tobacco status: never smoked Alcohol intake: never Marital status: Current occupational status: employed History of recent travel: No Vitals/I&O/Wt Last Vital Signs Temp 98.6 F 08/23/22 08:00 Pulse 81 08/23/22 08:00 Resp 12 08/23/22 08:00 BP 145/88 08/23/22 08:00 Pulse Ox 96 08/23/22 08:00 O2 Del Method 08/23/22 08:00 08/22/22 08/23/22 08/23/22 22:59 06:59 14:59 Intake Total 823.333 / 823.333 Balance 823.333 / 823.333 Weight last 48 hrs Weight 270 lb Physical Exam Narrative: GENERAL: Patient is alert, awake and oriented x3. [] NECK: No jugular vein distension. [] HEENT: No cyanosis. No icterus. No pallor. [] HEART: Regular S1 and S2. No murmur, rub or gallop. [] LUNGS: Clear to auscultate bilaterally. [] ABDOMEN: Soft, nontender and nondistended. Positive bowel sounds. No guarding, rebound or tenderness. [] CENTRAL NERVOUS SYSTEM: Grossly nonfocal. [] EXTREMITIES: Lower extremities with 1+ edema bilaterally. Pulses palpable in the lower extremities, both dorsalis pedis and posterior tibial. [] Data : 08/23/22 00:36 08/23/22 00:36 A&P Assessment and plan (1) NSTEMI (non-ST elevated myocardial infarction): (2) Chest pain: (3) Diabetes: (4) Hypertension: Qualifiers: Hypertension type: essential hypertension Qualified Code(s): I10 - Essential (primary) hypertension (5) Hyperlipidemia: Qualifiers: Hyperlipidemia type: mixed hyperlipidemia Qualified Code(s): E78.2 - Mixed hyperlipidemia (6) Obstructive sleep apnea: Plan Patient has presented with a non-ST elevation [place]. Describes typical chest pain. Still having on and off chest pain. Continue aspirin and Plavix. Continue anticoagulation. Keep NPO. He will need coronary angiogram with possible percutaneous coronary intervention. Risks and benefits of the procedure have been discussed with the patient. He understands the risks and wants to proceed with the procedure. Order echocardiogram Thank you for involving us with care of this patient. We will continue to follow. Please call with questions. Consult Attestations Medical Necessity Statement: Care expected to cross 2 midnights. Coding Level of Care Code Acute Supervisor [employer] for [facility] Fwd Diagnoses NSTEMI (non-ST elevated myocardial infarction) I21.4 Chest pain R07.9 Diabetes E11.9 Hypertension I10 Hypertension type: essential hypertension Hyperlipidemia E78.2 Hyperlipidemia type: mixed hyperlipidemia Obstructive sleep apnea G47.33
[2022-08-23 09:56] LABS: LDL Cholesterol Direct 58 mg/dL (0-100)
--- NOTE | 2022-08-23 10:08 | PC.NURSE ---
PT TAKEN TO [employer]NET SALES ASSOCIATE AT APPROX. 1010
[2022-08-23 11:54] LABS: Glucose Point of Care 183 mg/dL (70-110)
[2022-08-23] MEDS: lactated ringers 1,000 ML 75 ML IV (11:57)
--- NOTE | 2022-08-23 15:25 | P.PN_ITS ---
Subjective Subjective: Admitted overnight. H&P and labs appreciated On examination early in the morning laying comfortably in bed with family at bedside. Patient continues to have minimal jaw pain even with Nitropaste. Denies any nausea, vomiting, dizziness. Patient was seen by cardiology underwent cardiac angiogram and PCI.(Complete report not available currently.) Vitals/I&O/Wt Last Vital Signs Temp 98.5 F 08/23/22 12:30 Pulse 81 08/23/22 14:30 Resp 13 08/23/22 14:30 BP 107/73 08/23/22 14:30 Pulse Ox 96 08/23/22 14:15 O2 Del Method 08/23/22 08:00 08/23/22 08/23/22 08/23/22 06:59 14:59 22:59 Intake Total 1240.000 / 1240.000 Balance 1240.000 / 1240.000 Weight last 48 hrs Weight 122.47 kg Physical Exam Const: COMMON NORMALS: patient oriented x3 HENMT: COMMON NORMALS: normocephalic and atraumatic HEAD & SCALP: normocephalic and atraumatic Resp: COMMON NORMALS: clear to auscultation bilaterally EFFORT & INSPECTION: Yes symmetric chest movement AUSCULTATION: clear to auscultation bilaterally Cardio: COMMON NORMALS: regular rate, regular rhythm, S1 normal heart sound present, S2 normal heart sound present, No gallops present (Cardio), No murmurs present (Cardio), No rub (Cardio) and Peripheral pulses 2+ throughout RATE: regular rate RHYTHM: regular rhythm HEART SOUNDS: S1 normal heart sound present and S2 normal heart sound present PERIPHERAL PULSES: Peripheral pulses 2+ throughout GI: COMMON NORMALS: Normal to inspection, nondistended, normoactive bowel sounds present, Soft to palpation, non-tender, No hepatosplenomegaly present and no masses AUSCULTATION: Yes normoactive bowel sounds PALPATION: Yes Soft to palpation and Yes No hepatosplenomegaly present RECTAL EXAM: Yes deferred Extremity: COMMON NORMALS: no clubbing, cyanosis or edema and no pedal edema Neuro: COMMON NORMALS: patient oriented x3 Data : 08/23/22 00:36 08/23/22 00:36 A&P Assessment and plan (1) NSTEMI (non-ST elevated myocardial infarction): Cardiology on board. Underwent cardiac angiogram and PCI. Continue with aspirin, Plavix, statin. Check echocardiogram, A1c, lipid panel. (2) Chest pain: (3) Hypertension: Goal blood pressure less than 140/90 mmHg. Continuing home medication including metoprolol, Imdur, lisinopril. Will uptitrate as per blood pressure goal. Qualifiers: Hypertension type: essential hypertension Qualified Code(s): I10 - Essential (primary) hypertension (4) ASHD (arteriosclerotic heart disease): (5) Hyperlipidemia: Qualifiers: Hyperlipidemia type: mixed hyperlipidemia Qualified Code(s): E78.2 - Mixed hyperlipidemia (6) Diabetes: (7) Obstructive sleep apnea: Plan Diarrhea: Cannot rule out infectious cause. Denies any melena or hematochezia. Will await stool studies before starting on loperamide. Restart other chronic medications. Analgesia: Tylenol as needed Glycemic control: Insulin sliding scale Nutrition: Cardiac carb consistent diet CODE STATUS: Full code PUD prophylaxis: Protonix DVT prophylaxis: Lovenox for DVT prophylaxis Discharge planning: Transfer to [facility] post PCI. This documentation was created by [employer] tactical deception plans officer software. Every effort was made to ensure accuracy of tactical deception plans officer. Any obvious errors or omissions should be clarified with the author of the document. Attestations Medical Necessity Statement*: Requires further hospitalization for management of non-ST elevation DC, diarrhea Time Spent in Patient Care: Greater than 35 minutes Coding Level of Care Code Acute Change Agent for g Fwd Diagnoses NSTEMI (non-ST elevated myocardial infarction) I21.4 Chest pain R07.9 Hypertension I10 Hypertension type: essential hypertension ASHD (arteriosclerotic heart disease) I25.10 Hyperlipidemia E78.2 Hyperlipidemia type: mixed hyperlipidemia Diabetes E11.9 Obstructive sleep apnea G47.33
[2022-08-23 17:46] LABS: Glucose Point of Care 187 mg/dL (70-110)
[2022-08-23 20:16] LABS: Glucose Point of Care 242 mg/dL (70-110)
[2022-08-23] MEDS: lamoTRIgine 100 mg Tablet 200 MG PO (20:30)
[2022-08-23] MEDS: prazosin 1 mg Capsule 3 MG PO (20:38)
[2022-08-23] MEDS: sodium chloride 0.9% 1,000 ML 100 ML IV (21:52)
--- NOTE | 2022-08-23 23:50 | PC.NURSE ---
patient states he takes 3mg prazosin at bedtime not 5 mg, edited order and updated home med list
[2022-08-24] VITALS (12 sets, daily range): BP systolic 90–135; BP diastolic 48–78; PULSE 72–79; RESP 0–18; TEMP 36.4–36.5; O2SAT 90–98
[2022-08-24] MEDS: nitroglycerin 1 gm/inch oint Pkt 1 INCH TOPICAL (00:26)
[2022-08-24 03:36] LABS: Add Urine Microscopic? NO; Charge for UA Resulting for Rev
[2022-08-24 03:48] LABS: Bilirubin Urine Negative (Negative); Blood Urine Negative (Negative); Glucose Urine UA 1+ (Normal); Ketones Urine Negative (Negative); Leukocyte Esterase Urine Negative (Negative); Nitrate Urine Negative; Protein Urine Negative (Negative); Specific Gravity, Urine >= 1.030 (1.005-1.030); Urine Appearance Clear (CLEAR); Urine Color Yellow (Yellow); Urobilinogen Urine 0.2 mg/dL (Negative); pH Urine 5.5 (5-7)
[2022-08-24 04:13] LABS: Basophils % 0.5 %; Eosinophils # 0.1 10^3/uL (0.0-0.8); Hematocrit 39.4 % (42.0-52.0); Hemoglobin 13.5 g/dL (11.7-16.6); Lymphocytes # 2.2 10^3/uL (0.8-4.8); Lymphocytes % 33.8 %; Mean Corpuscular HGB Conc 34.3 g/dL (30.0-36.0); Mean Corpuscular Hemoglobin 28.5 pg (28.0-34.0); Mean Corpuscular Volume 83.1 fl (80-94); Mean Platelet Volume 10.2 fL (7.4-10.4); Monocytes # 0.7 10^3/uL (0.2-0.9); Monocytes % 10.1 %; Neutrophils # 3.47 10^3/uL (1.8-7.7); Neutrophils % 53.1 %; Nucleated Red Blood Cells % 0 %; Platelet Count 214 10^3/cmm (130-400); Red Blood Count 4.74 10^6/uL (4.1-5.3); Red Cell Distribution Width 12.4 % (12.1-15.1); White Blood Count 6.5 10^3/uL (4.0-10.0)
[2022-08-24 04:45] LABS: Alanine Aminotransferase 18 U/L (0-41); Albumin Level 3.7 g/dL (3.5-5.2); Alkaline Phosphatase 52 U/L (40-130); Aspartate Amino Transferase 18 U/L (0-40); Blood Urea Nitrogen 10 mg/dL (6-20); Calcium 8.4 mg/dL (8.5-10.5); Carbon Dioxide 28 mmol/L (22-29); Chol HDL Ratio 4.96 mg/dL (1.0-5.00); Cholesterol 134 mg/dL (0-200); Globulin 1.8 g/dL (1.3-4.6); Glucose 193 mg/dL (65-115); HDL Cholesterol 27 mg/dL (60-100); Magnesium 1.6 mg/dL (1.7-2.3); Phosphorus 3.6 mg/dL (2.5-4.5); Total Bilirubin 0.5 mg/dL (0.15-1.2); Total Protein 5.5 g/dL (6.6-8.7); Triglycerides 586 mg/dL (0-150); VLDL Cholestrol Calculation 117 mg/dL (0-30)
[2022-08-24 04:53] LABS: Potassium 3.6 mmol/L (3.5-5.1)
[2022-08-24 05:45] LABS: Anion Gap 12.6 (5-19); LDL Cholesterol Direct 35 mg/dL (0-100)
[2022-08-24 05:49] LABS: Chloride 100 mmol/L (98-107); Osmolality Calculated 288 mOsm/kg (285-295); Sodium 137 mmol/L (136-145)
[2022-08-24] MEDS: buPROPion XL (24 HR) 300 mg Tablet PO (06:05)
[2022-08-24] MEDS: acetaminophen 325 mg Tablet 650 MG PO (06:11)
[2022-08-24 07:16] LABS: Glucose Point of Care 201 mg/dL (70-110)
[2022-08-24] MEDS: insulin lispro 100 unit/1 mL SUBCUT (08:44)
[2022-08-24] MEDS: sodium chloride 0.9% 1,000 ML 100 ML IV (08:45)
[2022-08-24] MEDS: aspirin 81 mg EC Tablet PO (08:45)
[2022-08-24] MEDS: fenofibrate 145 mg Tablet PO (08:46)
[2022-08-24] MEDS: isosorbide mononitrate ER 30 mg Tablet PO (08:46)
[2022-08-24] MEDS: lisinopril 5 mg Tablet PO (08:46)
[2022-08-24] MEDS: clopidogrel 75 mg Tablet PO (08:46)
[2022-08-24] MEDS: atorvastatin 40 mg Tablet 20 MG PO (08:46)
[2022-08-24] MEDS: metoprolol tartrate 25 mg Tablet PO (08:46)
[2022-08-24] MEDS: pantoprazole DR 40 mg Tablet PO (08:47)
[2022-08-24] MEDS: primidone 50 mg Tablet PO (08:47)
[2022-08-24] MEDS: venlafaxine 75 mg Tablet PO (08:48)
--- NOTE | 2022-08-24 08:52 | PM.PN ---
Subjective Subjective: Patient is doing well. no more complaints of chest pain. Had successful revascularization of diagonal artery with ROX x 1. Vitals/I&O/Wt Last Vital Signs Temp 97.6 F 08/24/22 04:00 Pulse 79 08/24/22 08:25 Resp 12 08/24/22 08:25 BP 135/68 08/24/22 08:25 Pulse Ox 90 08/24/22 08:25 O2 Del Method 08/24/22 08:25 08/23/22 08/24/22 08/24/22 22:59 06:59 14:59 Intake Total 722 / 2531.482 1748 / 2962.000 Balance 722 / 7832.176 2039 / 2962.000 Weight last 48 hrs Weight 281 lb 12.8 oz Weight 270 lb Physical Exam Narrative: GENERAL: Patient is alert, awake and oriented x3. [] NECK: No jugular vein distension. [] HEENT: No cyanosis. No icterus. No pallor. [] HEART: Regular S1 and S2. No murmur, rub or gallop. [] LUNGS: Clear to auscultate bilaterally. [] ABDOMEN: Soft, nontender and nondistended. Positive bowel sounds. No guarding, rebound or tenderness. [] CENTRAL NERVOUS SYSTEM: Grossly nonfocal. [] EXTREMITIES: Lower extremities with 1+ edema bilaterally. Pulses palpable in the lower extremities, both dorsalis pedis and posterior tibial. [] Data : 08/24/22 03:13 08/24/22 03:13 A&P Assessment and plan (1) NSTEMI (non-ST elevated myocardial infarction): (2) Chest pain: (3) Diabetes: (4) Hypertension: Qualifiers: Hypertension type: essential hypertension Qualified Code(s): I10 - Essential (primary) hypertension (5) Hyperlipidemia: Qualifiers: Hyperlipidemia type: mixed hyperlipidemia Qualified Code(s): E78.2 - Mixed hyperlipidemia (6) Obstructive sleep apnea: Plan Coronary angiogram demonstrated severe diagonal artery stenosis. He underwent successful revascularization with ROX x1. He had totally occluded stent in the distal left circumflex artery with collateral blood supply. Dual antiplatelet therapy with aspirin and Plavix. High intensity statin therapy. Aggressive risk factor control Echocardiogram shows preserved LV systolic function. Thank you for involving us with care of this patient. Patient is stable to be discharged from cardiology standpoint. Please call with questions. Attestations Medical Necessity Statement*: Care expected to cross 2 midnights. Coding Level of Care Code Acute Digital Director for Tracy [facility] Diagnoses NSTEMI (non-ST elevated myocardial infarction) I21.4 Chest pain R07.9 Diabetes E11.9 Hypertension I10 Hypertension type: essential hypertension Hyperlipidemia E78.2 Hyperlipidemia type: mixed hyperlipidemia Obstructive sleep apnea G47.33
--- NOTE | 2022-08-24 09:43 | P.DS_ITS ---
Discharge Providers Date of Admission: 08/22/22 23:13 Date of Discharge: August 24, 2022 Attending Provider at Admission: Gabriel Beavers MD Attending Provider at Discharge: Diogo Murphy MD Primary Care Provider: Lucia Hobbs MD Diagnoses at Discharge Discharge Diagnosis (1) NSTEMI (non-ST elevated myocardial infarction): Status: Acute (2) Chest pain: Status: Acute (3) Diabetes: Status: Acute (4) Hypertension: Status: Acute Qualifiers: Hypertension type: essential hypertension Qualified Code(s): I10 - Essential (primary) hypertension (5) Hyperlipidemia: Status: Acute Qualifiers: Hyperlipidemia type: mixed hyperlipidemia Qualified Code(s): E78.2 - Mixed hyperlipidemia (6) Obstructive sleep apnea: Status: Acute Reason for Visit Reason for Visit: CP; diarrhea Hospital Course Hospital Course Ralf Anne is a 52 year old male with past medical history of hypertension, CAD with prior stent, diabetes, hyperlipidemia who presented to the [place] emergency room last week with chest pain symptoms.? ACS was ruled out and he was discharged.? He came back yesterday again with substernal chest discomfort radiating to the left arm and jaw.? He says it has been staying quite persistently over the last few days.? His troponin was over 100.? EKG showed normal sinus rhythm with nonspecific ST-T wave changes.? Q waves are seen in inferior leads.? Patient also had diarrhea for the last 3 days. Patient to the hospital further evaluation and management. Cardiology was consulted and he underwent cardiac angiogram on 08/23. He underwent PCI.(Full Cardiac Barrel Filler Head report is not available to me right now). Postprocedure patient did not have any further episodes of angina or diarrhea. He was found to have uncontrolled diabetes with A1c of 8.6 along with triglyceridemia. Patient is already on 3 antidiabetic medications along with 2 medications for triglyceridemia. He was counseled detail regarding lifestyle modification along with stricter blood sugar control at home. He was advised to be started on insulin for both blood sugar controls and tighter triglyceride control. Patient verbalized understanding and would want to talk to his primary care provider before changing medications. He is been discharged in medically stable condition advised to follow-up with Zeenat Davidson nurse practitioner from heart services in [address] Krause within next 1 month. Physical Exam Const: COMMON NORMALS: patient oriented x3 HENMT: COMMON NORMALS: normocephalic and atraumatic HEAD & SCALP: normocephalic and atraumatic Resp: COMMON NORMALS: clear to auscultation bilaterally EFFORT & INSPECTION: Yes symmetric chest movement AUSCULTATION: clear to auscultation bilaterally Cardio: COMMON NORMALS: regular rate, regular rhythm, S1 normal heart sound present, S2 normal heart sound present, No gallops present (Cardio), No murmurs present (Cardio), No rub (Cardio) and Peripheral pulses 2+ throughout RATE: regular rate RHYTHM: regular rhythm HEART SOUNDS: S1 normal heart sound present and S2 normal heart sound present PERIPHERAL PULSES: Peripheral pulses 2+ throughout GI: COMMON NORMALS: Normal to inspection, nondistended, normoactive bowel sounds present, Soft to palpation, non-tender, No hepatosplenomegaly present and no masses AUSCULTATION: Yes normoactive bowel sounds PALPATION: Yes Soft to palpation and Yes No hepatosplenomegaly present RECTAL EXAM: Yes deferred Extremity: COMMON NORMALS: no clubbing, cyanosis or edema and no pedal edema Neuro: COMMON NORMALS: patient oriented x3 Discharge Data Studies Completed and Pending Completed Studies During Hospitalization Category Date Time Status CV. echo complete* [id number] Routine Ultrasound 08/23/22 00:09 Completed Pending at discharge Category Date Time Status INFORMATION SYSTEMS PROFESSOR request for service Routine Exams 08/23/22 09:46 Taken Clostridioides Difficile PCR Routine Lab 08/23/22 00:09 Uncollected Complete Blood Count w/Auto AM LABS Lab 08/25/22 04:00 Ordered Complete Blood Count w/Auto AM LABS Lab 08/26/22 04:00 Ordered Comprehensive Metabolic Panel AM LABS Lab 08/25/22 04:00 Ordered Comprehensive Metabolic Panel AM LABS Lab 08/26/22 04:00 Ordered Rota Virus AG Stool Routine Lab 08/23/22 00:09 Uncollected Stool Culture, Bacterial [Enteric Bacterial Panel by Lab 08/23/22 00:09 Uncollected PCR] Routine Stool WBC [Lactoferrin] Routine Lab 08/23/22 00:09 Uncollected stool Ova and Parasite [Enteric Parasite Panel by PCR] Lab 08/23/22 00:09 Uncollected Routine Echocardiogram: CONCLUSIONS LV systolic function is normal with EF 55 to 60%. Diastolic function is abnormal. Trace tricuspid regurgitation Compared to prior echocardiogram from 2017, no significant?changes are seen. ?James Corona MD ?(Electronically Signed) ?Final Date:? ? ? 23 August 2022 Laboratory Results WBC 6.5 10^3/uL (4.0-10.0) 08/24/22 03:13 RBC 4.74 10^6/uL (4.1-5.3) 08/24/22 03:13 Hgb 13.5 g/dL (11.7-16.6) 08/24/22 03:13 Hct 39.4 % (42.0-52.0) L 08/24/22 03:13 MCV 83.1 fl (80-94) 08/24/22 03:13 MCH 28.5 pg (28.0-34.0) 08/24/22 03:13 MCHC 34.3 g/dL (30.0-36.0) 08/24/22 03:13 RDW 12.4 % (12.1-15.1) 08/24/22 03:13 Plt Count 214 10^3/cmm (130-400) 08/24/22 03:13 MPV 10.2 fL (7.4-10.4) 08/24/22 03:13 Neut % (Auto) 53.1 % 08/24/22 03:13 Lymph % (Auto) 33.8 % 08/24/22 03:13 [place] % (Auto) 10.1 % 08/24/22 03:13 Eos % (Auto) 2.0 % 08/24/22 03:13 Baso % (Auto) 0.5 % 08/24/22 03:13 Neut # (Auto) 3.47 10^3/uL (1.8-7.7) 08/24/22 03:13 Lymph # (Auto) 2.2 10^3/uL (0.8-4.8) 08/24/22 03:13 [place] # (Auto) 0.7 10^3/uL (0.2-0.9) 08/24/22 03:13 Eos # (Auto) 0.1 10^3/uL (0.0-0.8) 08/24/22 03:13 Baso # (Auto) 0.0 10^3/uL (0.0-0.1) 08/24/22 03:13 Nucleated RBC % (auto) 0 % 08/24/22 03:13 Nucleated RBCs # 0.0 /100WBC 08/24/22 03:13 Sodium 137 mmol/L (136-145) 08/24/22 03:13 Potassium 3.6 mmol/L (3.5-5.1) 08/24/22 03:13 Chloride 100 mmol/L (98-107) 08/24/22 03:13 Carbon Dioxide 28 mmol/L (22-29) 08/24/22 03:13 Anion Gap 12.6 (5-19) 08/24/22 03:13 BUN 10 mg/dL (6-20) 08/24/22 03:13 Creatinine 0.9 mg/dL (0.7-1.2) 08/24/22 03:13 GFR Calculation 89.0 mL/min (90-130) L 08/24/22 03:13 Glucose 193 mg/dL (65-115) H 08/24/22 03:13 POC Glucose 201 mg/dL (70-110) H 08/24/22 07:12 Estimat Average Glucose 200 08/23/22 06:37 Hemoglobin A1c 8.6 % (4.0-6.0) H 08/23/22 06:37 Calculated Osmolality 288 mOsm/kg (285-295) 08/24/22 03:13 Calcium 8.4 mg/dL (8.5-10.5) L 08/24/22 03:13 Phosphorus 3.6 mg/dL (2.5-4.5) 08/24/22 03:13 Magnesium 1.6 mg/dL (1.7-2.3) L 08/24/22 03:13 Total Bilirubin 0.5 mg/dL (0.15-1.2) 08/24/22 03:13 AST 18 U/L (0-40) 08/24/22 03:13 ALT 18 U/L (0-41) 08/24/22 03:13 Alkaline Phosphatase 52 U/L (40-130) 08/24/22 03:13 Troponin T Gen 5 ng/L Cancelled 08/23/22 00:36 Troponin T Baseline 128 ng/L (0-15) H* 08/23/22 00:36 Troponin T 120 Minute 125.6 ng/L (0-15) H 08/23/22 02:11 Delta Troponin T -2.4 ABS# (0-10) L 08/23/22 02:11 Troponin T Hi Sens 6Hr 135.8 ng/L (0-15) H 08/23/22 06:37 Troponin T Hi Sens 6Hr Delta 7.8 ng/L (0-12) 08/23/22 06:37 Total Protein 5.5 g/dL (6.6-8.7) L 08/24/22 03:13 Albumin 3.7 g/dL (3.5-5.2) 08/24/22 03:13 Globulin 1.8 g/dL (1.3-4.6) 08/24/22 03:13 Triglycerides 586 mg/dL (0-150) H 08/24/22 03:13 Cholesterol 134 mg/dL (0-200) 08/24/22 03:13 LDL Cholesterol Direct 35 mg/dL (0-100) 08/24/22 03:13 LDL Cholesterol, Calc Not Reportable 08/24/22 03:13 Total VLDL Cholesterol 117 mg/dL (0-30) H 08/24/22 03:13 HDL Cholesterol 27 mg/dL (60-100) L 08/24/22 03:13 Cholesterol/HDL Ratio 4.96 mg/dL (1.0-5.00) 08/24/22 03:13 Vitamin B12 330 pg/mL (232-1245) 08/23/22 06:37 Folate 9.1 ng/mL (4.5-32.2) 08/23/22 06:37 TSH 1.42 uIU/mL (0.27-4.20) 08/23/22 06:37 Urine Color Yellow (Yellow) 08/24/22 03:15 Urine Appearance Clear (CLEAR) 08/24/22 03:15 Urine pH 5.5 (5-7) 08/24/22 03:15 Ur Specific [place] >= 1.030 (1.005-1.030) 08/24/22 03:15 Urine Protein Negative (Negative) 08/24/22 03:15 Urine Glucose (UA) 1+ (Normal) H 08/24/22 03:15 Urine Ketones Negative (Negative) 08/24/22 03:15 Urine Blood Negative (Negative) 08/24/22 03:15 Urine Nitrate Negative 08/24/22 03:15 Urine Bilirubin Negative (Negative) 08/24/22 03:15 Urine Urobilinogen 0.2 mg/dL (Negative) 08/24/22 03:15 Ur Leukocyte Esterase Negative (Negative) 08/24/22 03:15 Vitals Last Vital Signs Temp 97.6 F 08/24/22 04:00 Pulse 79 08/24/22 08:25 Resp 12 08/24/22 08:25 BP 135/68 08/24/22 08:25 Pulse Ox 90 08/24/22 08:25 O2 Del Method 08/24/22 08:25 Discharge Plan Discharge Patient Disposition: Home Condition: Stable Prescriptions: Continued pantoprazole 40 mg tablet,delayed release (DR/EC) 40 mg PO DAILY isosorbide mononitrate 30 mg tablet extended release 24 hr 30 mg PO DAILY diphenhydramine HCl [Benadryl Allergy] 25 mg tablet 25 mg PO BEDTIME PRN (Reason: Allergy Symptoms) bupropion HCl 300 mg tablet extended release 24 hr 300 mg PO QAM pravastatin 40 mg tablet 40 mg PO DAILY coenzyme Q10 [Co Q-10] 100 mg capsule 100 mg PO DAILY aspirin [Adult Low Dose Aspirin] 81 mg tablet,delayed release (DR/EC) 81 mg PO BEDTIME fenofibrate nanocrystallized 145 mg tablet 145 mg PO DAILY clopidogrel 75 mg tablet 75 mg PO DAILY cholecalciferol (vitamin D3) 25 mcg (1,000 unit) capsule 75 mcg PO QAM primidone 50 mg tablet 50 mg PO BID Qty: 60 3RF Jardiance 25 mg tablet 25 mg PO DAILY alogliptin 25 mg tablet 25 mg PO DAILY metformin 500 mg tablet extended release 24hr 1,000 mg PO BID nitroglycerin [Nitrostat] 0.4 mg tablet, sublingual 0.4 mg SUBLINGUAL Q5M PRN (Reason: chest pain) Qty: 90 0RF Rx Instructions: do not exceed 3 doses per episode lamotrigine 200 mg Tablet 200 mg PO BEDTIME multivitamin Tablet 1 tab PO DAILY PRN (Reason: unknown) Effexor XR 75 mg Capsule,Extended Release 24hr 75 mg PO QAM Fish Oil Concentrate 1,000 mg Capsule 2,000 mg PO BID glipizide 10 mg Tablet 10 - 20 mg PO BID prazosin 5 mg Capsule 3 mg PO BEDTIME Vitamin C 500 mg Tablet 500 mg PO DAILY PRN (Reason: unknown) lisinopril 10 mg Tablet 10 mg PO QAM Vitamin D2 1,250 mcg (50,000 unit) Capsule 50,000 unit PO Q7D Rx Instructions: on mon Changed metoprolol tartrate 50 mg Tablet 50 mg PO BID Qty: 60 0RF Slo-Niacin 500 mg Tablet Extended Release 1,000 mg PO BEDTIME Qty: 30 0RF Discharge Orders: Discharge Order (Routine); Ordered 08/24/22 Ordered By: Diogo Murphy Referrals: Lucia Hobbs MD [Primary Care Provider] - 7-10 days Zeenat Davidson FNP [Nurse Practitioner] - 4-7 days Cecilio Krause MD [Physician] - 1 month Discharge Diet: Cardiac and Diabetic Discharge Activity: Resume usual activity and Increase activity as tolerated Patient Instructions: Opioid Safety Activity Restrictions/Additional Instructions: Please follow-up with your primary care provider within next 7 to 10 days. F/u with Zeenat Davidson/ TERMITE TREATER HELPER of heart services in next 7-10 days. F/u Dr. Corona from cardiology within next 1 month. You should discuss with your primary care provider about changing your medications for diabetes. Ideally you should be on insulins given your uncontrolled triglyceridemia along with A1c of 8.6 being on multiple antidiabetic medications. Please continue with lifestyle modification as discussed in detail. Discharge Attestations Time Spent in Discharge Care*: greater than 30 min Specific Discharge Activities: educating patient, educating and/or supporting family/caregiver, discussing with pcp/other providers, discussing with case operator/social workers/dc planners, documenting/other paperwork and evaluating patient/reviewing data Status at Discharge: Cognitive status at discharge: cognitively intact , Behavioral status at discharge: cooperative , Functional status at discharge: independent ambulation , Overall status at discharge: patient is back to baseline Quality Metrics Clinical Quality Measures [ No reported AMI, CVA or VTE this stay] Coding Level of Care Code Acute Chg FW DC note History Comprehensive Exam Comprehensive Medical Decision Making High Complexity Diagnoses NSTEMI (non-ST elevated myocardial infarction) I21.4 Chest pain R07.9 Diabetes E11.9 Hypertension I10 Hypertension type: essential hypertension Hyperlipidemia E78.2 Hyperlipidemia type: mixed hyperlipidemia Obstructive sleep apnea G47.33
--- NOTE | 2022-08-24 10:45 | PC.NURSE ---
Extensive education regarding STEMI and stent placement provided to patient and family at bedside with other discharge education, extra attention to medications, exercise and cardiac/diabetic diet. Patient provided with written education. Patient and family had no questions. 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
--- NOTE | 2022-08-24 10:45 | PC.CHAP ---
Pastoral Care Encounter/Spiritual Assessment Type of Contact [] Declined store stock associate visit [] Patient/Family/Request visit [] Outpatient visit [] Follow-up visit [] Physician referral [] Code/Alert [x] Routine visit [] Staff referral [] Actively dying [x] Patient sleeping [] Family support [] [] Out of room [] Palliative care [] [] Receiving care in room [] Pre-surgical visit [] Trauma [] Long length of stay [x] ICU visit [] Other: Relational/Emotional Strength [] Patient feels connected with others/family/visitors/staff [] Distress [] Loneliness/isolation [] Abandonment Spirituality of Patient [] Person of Marija [] Attends Restorationist of their Marija [] Believes in Prayer [] Reads Bible or Roman Catholic materials [] There are Spiritual issues to be addressed Electrical And Electronic Assembler Interventions [x] Prayer [] Active listening [] Non-anxious presence [] Spiritual/emotional support [] Crisis/trauma care [] Spiritual counseling [] Bereavement support [] Provided bereavement packet [] Provided Bible/devotional materials [] Provided toy/stuffed animal, coloring book to patient or family member [] Provided Communion [] Anointing/[place] [] Salvation [x] Completed spiritual assessment [] Other: Impact on Illness or Injury [] Angry [] Fearful [] Anxious [] Often cries [] Exhaustion [] Unable to work [] Unable to attend anglican [] Unable to walk/stand [] Unable to read [] Unable to drive [] Unable to eat/drink [] Unable to sleep [] Unable to be with family [] Patient intubated [] Other: Summary Time spent with patient
== END 2022-08-24 10:40 | disposition home or self-care (01) | DRG 247 ==
LOC: MEDSURG 08-23 08:10 → ICU 08-23 11:21
PROVIDERS: Internal Medicine; Admitting Provider Internal Medicine; PCP Family Medicine; Visit Provider Student in an Organized Health Care Education/Training Program
PROC: 027034Z Dilation of Coronary Artery, One Artery with Drug-eluting Intraluminal Device, Percutaneous Approach (ICD-10-PCS; principal; 2022-08-23 10:00)
PROC: 027034Z Dilation of Coronary Artery, One Artery with Drug-eluting Intraluminal Device, Percutaneous Approach (ICD-10-PCS; 2022-08-23 10:00)
DX: I21.4 Non-ST elevation (NSTEMI) myocardial infarction (principal); T82.855A Stenosis of coronary artery stent, initial encounter; I25.119 Atherosclerotic heart disease of native coronary artery with unspecified angina pectoris; I10 Essential (primary) hypertension; E11.9 Type 2 diabetes mellitus without complications; Y71.8 Miscellaneous cardiovascular devices associated with adverse incidents, not elsewhere classified; G47.33 Obstructive sleep apnea (adult) (pediatric); K21.9 Gastro-esophageal reflux disease without esophagitis; E78.2 Mixed hyperlipidemia; I25.5 Ischemic cardiomyopathy; E66.9 Obesity, unspecified; Z68.37 Body mass index [BMI] 37.0-37.9, adult; R19.7 Diarrhea, unspecified; Z79.82 Long term (current) use of aspirin; Z79.02 Long term (current) use of antithrombotics/antiplatelets; Z79.84 Long term (current) use of oral hypoglycemic drugs
CPT/HCPCS: 36415; 36416; 80053; 80061; 81003; 82607; 82746; 82962; 83036; 83721; 83735; 84100; 84443; 84484; 85025; 85347; 93005; 93306; 93458; 96372; 99152; 99153; C1725; C1769; C1874; C1887; C1894; C9600; J1644; J1650; J1815; J2250; J3010; J3490; J7030; Q9967

== ENCOUNTER → 2022-08-31 10:47 | Outpatient (BNVA) | payer OTHER, SELFPAY | PROVIDERS: PCP Family Medicine; Visit Provider Nurse Practitioner Family | DX: I25.10 Atherosclerotic heart disease of native coronary artery without angina pectoris (principal); I10 Essential (primary) hypertension | CPT/HCPCS: 99214 ==

== ENCOUNTER → 2023-01-03 08:36 | Outpatient (BNVA) | payer OTHER, SELFPAY | PROVIDERS: PCP Family Medicine; Visit Provider Nurse Practitioner Family | DX: I25.118 Atherosclerotic heart disease of native coronary artery with other forms of angina pectoris (principal); I10 Essential (primary) hypertension | CPT/HCPCS: 93005; 99214 ==

== ENCOUNTER 2023-01-05 10:33 | Outpatient (CLI) | payer OTHER, SELFPAY ==
--- NOTE | 2023-01-05 10:42 | ECG_ITS ---
[facility] Test Date: 2023-01-05 Pat Name: Ralf Anne Department: Room: Gender: Male Survey Supervisor: : 1970 Requested By: Zeenat Davidson Order Number: [id number] Loya MD: Rosalie Camacho M.D. Interpretive Statements NAME OF STUDY: LEXISCAN SESTAMIBI STRESS TEST INDICATION: Chest Pain PROCEDURE: At the baseline, the blood pressure was 125/79 mm Hg with a heart rate of 89 bpm. The electrocardiogram showed sinus rhythm, normal axis. Non specific ST-T wave changes. ??? The Lexiscan was infused over a period of 20 seconds. A total of 0.4 milligrams of Lexiscan was infused. The stress phase was continued for a total of 5 minutes. Heart rate at the end of the stress phase was 100 bpm with a blood pressure of 109/83 mm Hg. The EKG at the peak infusion revealed no significant ST-T wave changes. The study was terminated due to protocol completion. ??? Sestamibi was injected 20 seconds after the Lexiscan infusion. ??? Blood pressure at the end of the recovery phase was 109/83 mm Hg with a heart rate of 100 beats per minute. ??? CONCLUSION: 1. No significant EKG changes with the] LexiScan infusion. 2. No LexiScan induced chest pain or cardiac arrhythmia. 3. Normal blood pressure and heart rate response. 4. Sestamibi/sestamibi perfusion scan pending; see separate report. Electronically Signed On 01-08-2023 11:50:33 HEAD TURBINE OPERATOR by Rosalie Camacho M.D. [email or web address]
--- NOTE | 2023-01-05 10:42 | NMCV_ITS ---
NM yolis perf SPECT r/s* [id number] [place] Age: 52 Gender: M : 1970 Exam Date: 01/05/2023 12:07 Ordering Phys: Zeenat Davidson Technologist: SAHIL Harrison Exam Location: [facility] Indications: ATHEROSCLEROTIC HEART DISEASE OF [place] CORONARY ARTERY STRESS TEST Please see separate stress test report in [facility] for full findings IMAGE PROTOCOL Rest/Stress 1 Lexiscan Day Radiopharmaceutical Dose (mCi) Administration Site Administered by Rest: Tc-99m 10.7 IV SAHIL Baldwin Sestamibi Stress:Tc-99m 32.8 IV SAHIL Baldwin Sestamibi Rest: 05-Jan-2023 60 Discovery 630 Stress: 05-Jan-2023 30 Discovery 630 0.4mg Lexiscan. Images obtained in supine and prone position. SPECT RESULTS Technical Quality: Excellent Raw Data Analysis: Normal Image Corrections: No attenuation or motion correction applied Summed Stress Score: 1 Summed Rest Score: 0 Summed Difference Score: 1 PERFUSION FINDINGS There is small in size, reversible perfusion defect noted in apical lateral wall. This is consistent with small sized area of ischemia in left circumflex artery territory. FUNCTIONAL RESULTS (calculated via Gated SPECT) Stress Image LV EF (%): 54 Stress EDV (mL):124 TID: 1.05 Stress ESV (mL):57 FUNCTIONAL FINDINGS: There is normal left ventricular systolic function. IMPRESSIONS 1. Small sized area of ischemia seen in left circumflex artery territory. 2. LV systolic function is normal. James Corona MD (Electronically Signed) Final Date: 14 January 2023 07:44 S
[2023-01-05 10:58] VITALS: BMI 35.6
[2023-01-05] MEDS: regadenoson 0.4 Mg/5 ml Syringe IVP (12:38)
[2023-01-05 12:55] VITALS: BP 109/83; PULSE 99
== END 2023-01-05 10:34 | disposition home or self-care (01) ==
PROVIDERS: PCP Family Medicine; Visit Provider Nurse Practitioner Family
DX: I25.118 Atherosclerotic heart disease of native coronary artery with other forms of angina pectoris (principal); I21.4 Non-ST elevation (NSTEMI) myocardial infarction
CPT/HCPCS: 36415; 78452; 85025; 93017; 96374; A9500; J2785

== ENCOUNTER 2023-01-20 10:28 | Outpatient (CLI) | payer OTHER, SELFPAY ==
[2023-01-20 12:18] LABS: Blood Urea Nitrogen 15 mg/dL (6-20); Calcium 9.4 mg/dL (8.5-10.5); Carbon Dioxide 21 mmol/L (22-29); Chloride 98 mmol/L (98-107); Glomerular Filtration Rate 70.6 mL/min (90-130); Glucose 212 mg/dL (65-115); NT Pro B Type Natriuretic Pept 84 pg/mL (0-125); Osmolality Calculated 289 mOsm/kg (285-295); Sodium 136 mmol/L (136-145)
[2023-01-20 12:48] LABS: Anion Gap 21.5 (5-19); Potassium 4.5 mmol/L (3.5-5.1)
== END 2023-01-20 10:29 | disposition home or self-care (01) ==
LOC: LAB 10:38
PROVIDERS: PCP Family Medicine; Visit Provider Nurse Practitioner Family
DX: I21.4 Non-ST elevation (NSTEMI) myocardial infarction (principal); I25.118 Atherosclerotic heart disease of native coronary artery with other forms of angina pectoris
CPT/HCPCS: 36415; 80048; 83880

== ENCOUNTER → 2023-02-14 15:36 | Outpatient (BNVA) | payer OTHER, SELFPAY | PROVIDERS: PCP Family Medicine; Visit Provider Nurse Practitioner Family | DX: R07.9 Chest pain, unspecified (principal); I10 Essential (primary) hypertension; Z79.82 Long term (current) use of aspirin | CPT/HCPCS: 99213 ==

== ENCOUNTER → 2023-02-15 14:19 | Outpatient (BNVA) | payer OTHER, SELFPAY | PROVIDERS: PCP Family Medicine; Visit Provider Internal Medicine Cardiovascular Disease | DX: I25.118 Atherosclerotic heart disease of native coronary artery with other forms of angina pectoris (principal); R00.0 Tachycardia, unspecified; E11.9 Type 2 diabetes mellitus without complications; Z79.84 Long term (current) use of oral hypoglycemic drugs; E78.2 Mixed hyperlipidemia; I10 Essential (primary) hypertension; R53.83 Other fatigue; Z79.82 Long term (current) use of aspirin | CPT/HCPCS: 99215 ==

== ENCOUNTER 2023-03-14 07:19 | Outpatient (CLI) | payer OTHER, SELFPAY ==
[2023-03-14] VITALS (16 sets, daily range): BP systolic 126–173; BP diastolic 87–100; PULSE 72–86; RESP 12–21; TEMP 36.8; O2SAT 92–98; BMI 37.8
--- NOTE | 2023-03-14 07:57 | W.PM.OPSUD ---
Surgery/Procedure H&P Update DATE OF PROCEDURE: March 14, 2023 DATE H&P PERFORMED: 02/15/23 H&P UPDATE INFORMATION: I have reviewed H&P completed within last 30 days, I have examined patient prior to procedure and No changes to prior documentation PREOP DIAGNOSIS: ASHD PRIMARY INDICATION FOR PROCEDURE: Chest pain, shortness of breath, abnormal Myocardial perfusion imaging PLANNED PROCEDURE: Operation Date: 03/14/23 08:30 Proposed Procedures p [id number],I25.118(Left) - Cecilio Krause MD PATIENT REASSESSED PRIOR TO SEDATION, WITH NO CHANGE NOTED: Yes PHYSICAL EXAM: alert, clear to auscultation bilaterally and regular rate & rhythm AIRWAY EVAL/ANESTHESIA PLAN: normal airway, see other exam findings, ASA III, Monitored Anesthesia, Local Anesthesia, Risks, benefits & alternatives of sedation and/or procedure discussed and Patient agrees to continue as planned
[2023-03-14 07:59] LABS: Glucose Point of Care 334 mg/dL (70-110)
[2023-03-14 08:11] LABS: Basophils # 0.1 10^3/uL (0.0-0.1); Basophils % 0.9 %; Eosinophils # 0.1 10^3/uL (0.0-0.8); Eosinophils % 1.6 %; Hematocrit 50.6 % (42.0-52.0); Hemoglobin 18.5 g/dL (11.7-16.6); Lymphocytes # 2.1 10^3/uL (0.8-4.8); Lymphocytes % 29.9 %; Mean Corpuscular HGB Conc 36.6 g/dL (30.0-36.0); Mean Corpuscular Hemoglobin 29.5 pg (28.0-34.0); Mean Corpuscular Volume 80.7 fl (80-94); Mean Platelet Volume 9.6 fL (7.4-10.4); Monocytes # 0.6 10^3/uL (0.2-0.9); Monocytes % 7.8 %; Neutrophils # 4.18 10^3/uL (1.8-7.7); Neutrophils % 59.2 %; Nucleated Red Blood Cells % 0 %; Platelet Count 278 10^3/cmm (130-400); Red Blood Count 6.27 10^6/uL (4.1-5.3); Red Cell Distribution Width 12.5 % (12.1-15.1); White Blood Count 7.1 10^3/uL (4.0-10.0)
--- NOTE | 2023-03-14 08:30 | XACV_ITS ---
Exam Room: 2 Ht: 185 cm Wt: 130 kg BSA: 2.64 m2 Gender: Male : 1970 Any Known Allergies: Other Exam Priority: Routine Procedure(s): Procedure Description: Diagnostic procedure Procedure Description: Left Heart Catheterization Procedure Description: Coronary Angiography Jimi SMITH; Diagnostic Cath Status: Elective Diagnostic Findings * The left main is a medium to large caliber vessel with no significant stenotic lesions. * The left anterior descending artery is a medium caliber vessel which appears to wrap around the LV apex. The proximal LAD was found to have minimal intimal irregularities. The first diagonal branch was found to have a proximal tubular narrowing of around 30%. The stented segment distal to this was found to be widely patent with no evidence of any in-stent narrowing. The mid LAD was found to have diffuse tubular narrowing of around 30 to 40%. The distal LAD was found to have minimal intimal irregularities. * The left circumflex artery is a medium to large caliber vessel which was found to have no significant lesions proximally. The first obtuse marginal branch was found to have minimally intermittently irregularities with no significant stenotic lesion. The mid circumflex artery appears to taper off towards the origin of the second obtuse marginal branch and is completely occluded at its takeoff. Grade 2 left to left collaterals were noted filling up the distal circumflex artery.. * The right coronary artery appears to be totally occluded at its ostium after giving of the sinus sujey branch. Conclusions 1. 52-year-old white male with a history of coronary disease, status post PCI's x2, is presenting with the increasing episodes of chest pain. He was found to have a small area of ischemia in the apical lateral region. In view of the patient's ongoing worsening symptoms, in order to further evaluate the coronary status, a repeat cardiac catheterization was recommended. Patient underwent left heart catheterization with left and right coronary angiogram today. The findings are as follows. 2. 1. Medium to large caliber left main artery with no significant stenotic lesion. 2. 20 to 40% diffuse tubular narrowing of the mid LAD. Patent stented segment of the first diagonal branch. 3. Medium to large caliber circumflex artery appears to be totally occluded at the takeoff of the second obtuse marginal branch. Grade 2 left-to to left collaterals were noted. 4. Chronic total occlusion of the right coronary artery near the ostium.. 2 [id number] collaterals filling of the distal PLV and PDA branches. LVEDP of 11 mmHg. 3. I discussed and reviewed the cardiac catheterization data with Dr. Brady. Since the occlusions in the RCA and the circumflex artery are chronic,, it was thought to be appropriate to optimize medical treatment. Diagnostic RX Recommendation: medical therapy and/or counseling LV EDP: 11 mmHg Left Ventriculography Findings: * LV gram was not performed. LVEDP was 11 mmHg. Pressures Phase:Rest AO : 99 / 78 ( 88 ) @ 10:45:00 AM 127 / 89 ( 106 ) @ 11:00:00 AM 127 / 89 ( 103 ) @ 11:00:00 AM LV : 116 / 3 / 11 @ 11:00:00 AM 117 / 5 / 13 @ 11:00:00 AM Valves Phase:DefaultPhase AV : 0.0 @ 10:17:02 AM 0.0 @ 10:17:02 AM AV Mean Gradient: 0.0 @ 10:17:02 AM Clinical Evaluation EBL: 5mL-10mL Procedural Details Procedure Consent Obtained. Admit Source: Out Patient. Pre-Procedure Time Out. Identified patient by full name and date of as verbalized by the patient/guarantor. Does the consent match the physician's order: Yes. Accurate & Complete Informed Consent: Yes. Inpatient/Outpatient History & Physical on Chart: Yes. If H&P is completed, is and addenduem needed: No; If yes, is the addendum complete: N/A. Visualize and Verify Site with Patient/Guarantor: N/A. Relevant Radiology Images available: Yes. The risks, benefits, and alternatives of sedation and/or procedure were discussed by physician. The patient agrees to continue. Procedure started. [facility] Clinical Fraility Score: 4: Vulnerable. 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 Chest Pain Symptom Assessment: Typical Angina Symptoms. Current diagnosis: Chest Pain, Abnormal stress test. Correct patient, site and procedure confirmed by cath team. PERRLA. Strong, equal hand leadership program associate bilaterally. Lungs clear x 5 lobes. IV Site on Arrival: 18 gauge in the right anticubital. IV Fluids: 0.9% NaCl at 75ml/hr. 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 Pre Procedural Pulses: bilateral dorsalis pedis was 2+. Pre Procedural Pulses: bilateral posterior tibial was 2+. Pre Procedural Pulses: bilateral radial was 2+. Oxygen started at 2 liters/min via nasal canula. right groin was prepped with chloroprep then draped in the usual sterile fashion. right radial was prepped with chloroprep then draped in the usual sterile fashion. Baseline sample Acquired. HR: 74 BPM. Physician notified. Physician arrived. Physician scrubbed in. Immediate Pre-Procedure Time Out. Correct Patient: Yes; Correct Procedure: Yes; Correct Site: Yes; Correct Patient Position: Yes; Correct Supplies: Yes; Dried Flammable Prep: Yes; Blood Products Available: N/A;. Lidocaine 1% infiltrated to the right radial. Arterial access obtained. A 5 bruneian Norberto catheter in over wire. Catheter removed over the exchange wire. A 5 bruneian TIG catheter in over wire. Wire out. Unable to engage catheter. Catheter removed over the exchange wire. A 5 bruneian AL2 catheter in over wire. Catheter removed over the exchange wire. A 5 bruneian Norberto catheter in over wire. Multiple views taken of left coronary artery. Catheter removed over the exchange wire. A 5 bruneian JR4 catheter in over wire. Multiple views taken of right coronary artery. EDP Sample taken: LV 116/3,11; HR: 81 BPM; SpO2: 96%. Pullback taken: LV 117/5,13; AO 127/89(106); Mean: 0mmHg, Peak to Peak: 0mmHg, SEP: 4sec/min; HR: 83 BPM; SpO2: 97%. Physician scrubbed out. Physician review of cine films. Post Procedure: Pulses reassessed and unchanged. PERRLA. Strong, equal hand leadership program associate bilaterally. No VTE prophylaxis required. Medication's Wasted: Lidocaine 1% = 2 mL. Medication's Wasted: Nitro = 49.8 mg. Medication's Wasted: Heparin = 1000 unit. Medication's Wasted: Other = Fentanyl 50mcg, Versed 1 mg. Total IV fluids: 121 mL. Post-op diagnosis: Complete total occlusion of mid and distral circumflex, CHIMNEY SWEEPER RCA, patent stent. Complications: None. Estimated blood loss: 5mL-10mL. Responsiveness - Normal response to verbal stimuli; alert and oriented, PERRLA. Airway - Unaffected, no intervention required; spontaneous ventilation. Circulation: W/N/L, pulses unchanged. Nausea/Vomiting: N/A. Procedure completed. A TR Band was successful obtaining hemostatsis at the Right Radial artery insertion site. Patient transferred by wheelchair to CPRU. Vital chart was stopped. Access Site Site: Right Radial artery Sheath Size: 6 Fr Hemostasis Method: TR Band Hemostasis Success: Successful Procedure Medications Start: 9:17 AM Stop: 9:17 AM Medication: Versed Amount: 1 mg Route: I.V. Start: 9:18 AM Stop: 9:18 AM Medication: Fentanyl Amount: 50 mcg Route: I.V. Start: 9:25 AM Stop: 9:25 AM Medication: Versed Amount: 1 mg Route: I.V. Start: 9:27 AM Stop: 9:27 AM Medication: Verapamil Amount: 5 mg Route: I.A. Start: 9:27 AM Stop: 9:27 AM Medication: Nitrogylcerin Amount: 200 mcg Start: 9:32 AM Stop: 9:32 AM Medication: Heparin Amount: 5000 units Route: I.V. Start: 9:52 AM Stop: 9:52 AM Medication: Versed Amount: 1 mg Route: I.V. Start: 9:58 AM Stop: 9:58 AM Medication: 0.9% Saline Amount: 250 ml Route: I.V. bolus I, the attending physician, have reviewed and verified all procedure medications. Yes, all medications given per verbal order History/Risk Factors Hypertension: Yes Dyslipidemia: Yes Peripheral Arterial Disease (PAD): No Myocardial Infarction (CO): Yes Obesity: Yes Tobacco Use: Never Prior Interventions PCI: Yes CABG: No Valve Surgery: No Date of PCI: 08/23/2022 Report Signatures Finalized by Dr Cecilio Krause MD [facility] on 03/14/2023 07:29 PM
[2023-03-14 08:42] LABS: D Dimer 0.38 ug/mIFEU (0-0.59)
[2023-03-14 10:00] LABS: Blood Urea Nitrogen 13 mg/dL (6-20); Calcium 8.6 mg/dL (8.5-10.5); Carbon Dioxide 12 mmol/L (22-29); Chloride 95 mmol/L (98-107); Glucose 286 mg/dL (65-115); Osmolality Calculated 277 mOsm/kg (285-295); Sodium 128 mmol/L (136-145)
[2023-03-14 10:02] LABS: Anion Gap 25.1 (5-19); Potassium 4.1 mmol/L (3.5-5.1)
--- NOTE | 2023-03-14 10:22 | PC.NURSE ---
Received pt from lab aid. Pt has TR band on right wrist with distal pulses noted. no hematoma or bruising noted. Pt complains of no pain. Pt educated on restrictions of right wrist and verbally acknowledged understanding. pt placed on monitor and will be monitored per protocol.
== END 2023-03-14 13:51 | disposition home or self-care (01) ==
PROVIDERS: PCP Family Medicine; Visit Provider Internal Medicine Cardiovascular Disease
DX: I25.119 Atherosclerotic heart disease of native coronary artery with unspecified angina pectoris (principal); E11.9 Type 2 diabetes mellitus without complications; E78.2 Mixed hyperlipidemia; I10 Essential (primary) hypertension; R53.83 Other fatigue; R00.0 Tachycardia, unspecified; Z95.5 Presence of coronary angioplasty implant and graft; I25.82 Chronic total occlusion of coronary artery
CPT/HCPCS: 36415; 36416; 80048; 82962; 85025; 85378; 93458; 96361; 96365; 96367; 99152; 99153; C1769; C1887; C1894; J1644; J2250; J3010; J3490; J7030; Q0163; Q9967

== ENCOUNTER → 2023-03-21 09:26 | Outpatient (BNVA) | payer OTHER, SELFPAY | PROVIDERS: PCP Family Medicine; Visit Provider Nurse Practitioner Family | DX: I25.10 Atherosclerotic heart disease of native coronary artery without angina pectoris (principal); I10 Essential (primary) hypertension | CPT/HCPCS: 36415; 80048; 99214 ==